=== PATIENT | male | born 1960 | race Caucasian/White ===

== ENCOUNTER 2025-01-24 10:03 | Outpatient (CLI) | payer BC, SELFPAY | END 2025-01-24 10:04 | disposition home or self-care (01) | PROVIDERS: PCP Family Medicine; Visit Provider Family Medicine | DX: R35.0 Frequency of micturition (principal); R30.0 Dysuria; Z13.6 Encounter for screening for cardiovascular disorders | CPT/HCPCS: 80053; 80061; 87086 ==

== ENCOUNTER 2025-02-01 10:31 | Outpatient (CLI) | payer BC, SELFPAY ==
--- NOTE | 2025-02-01 10:45 | CRLHL7_ITS ---
For Patients: As a result of the Century Cures Act, medical imaging exams and procedure reports are released immediately into your electronic medical record. You may view this report before your referring provider. If you have questions, please contact your health care provider. Examination: US abdominal aorta Indication: Encounter for screening for cardiovascular disorders. Abdominal aortic aneurysm screening. Technique: Gonzalez scale and color Doppler images of the aorta and common iliac arteries are obtained. Comparison: None Findings: Proximal aorta: 2.5 x 2.4 cm Mid aorta: 1.6 x 1.9 cm Distal aorta: 2.4 x 2.4 cm Right common iliac artery: 1.0 x 1.4 cm Left common iliac artery: 1.4 x 1.3 cm Exam limited by excessive bowel gas. Impression: No abdominal aortic aneurysm. Dictated by Gregory Joe MD @ 02/01/2025 11:58:15 AM (Electronically Signed)
== END 2025-02-01 10:32 | disposition home or self-care (01) ==
LOC: US 10:34
PROVIDERS: PCP Family Medicine; Visit Provider Family Medicine
DX: Z13.6 Encounter for screening for cardiovascular disorders (principal); Z87.891 Personal history of nicotine dependence
CPT/HCPCS: 76706

== ENCOUNTER 2025-02-08 09:54 | Inpatient (IN) | payer BC, SELFPAY ==
[2025-02-08] VITALS (21 sets, daily range): BP systolic 127–168; BP diastolic 67–95; PULSE 50–76; RESP 12–18; TEMP 36.5–37.7; O2SAT 96–100; BMI 25.7
--- OUTSIDE RECORDS SUMMARY | 2025-02-08 09:56 | XMS_ITS | Clinical Summary ---
Author Organization [facility] Address [address] [place] [id number] Care Team Providers Care [employer] Name Role Phone Jose Luis Hensley MD Primary Care Provider [phone] Allergies No known active allergies Medications nicotine 21 mg/24 hr (NICODERM; HABITROL) 21 mg/24 hr patchIndication s:Tobacco use disorder Apply 1 Patch on dry, clean, hairless skin once daily. 30 Patch 0 5 Active nicotine 14 mg/24 hr (NICODERM CQ) 14 mg/24 hr patchIndication s:Tobacco use disorder Apply 1 Patch on dry, clean, hairless skin once daily. 30 Patch 0 5 Active nicotine 7 mg/24 hr (NICODERM; HABITROL) 7 mg/24 hr patchIndication s:Tobacco use disorder Apply 1 Patch on dry, clean, hairless skin once daily. 30 Patch 0 5 Active hydrocortisone 2.5% creamIndication s:Skin rash Apply topically to affected area(s) 2 times daily. 28 g 1 5 Active terbinafine HCl (LAMISIL) 250 mg tabletIndicatio ns:Tinea pedis of right foot Take 1 tablet by mouth once daily. 30 tablet 0 5 Active Active Problems Problem Noted Date Diagnosed Date Tobacco use disorder 01/10/2010 Disorders of bursae and tend ons in shoulder region, unspecified 01/10/2010 Social History Tobacco Use Types Packs/Day Years Used Date Smoking Tobacco: Former Cigarettes Q uit: 07/11/2014 Tobacco Cessation:Counseling Given: Yes Alcohol Use Standard Drinks/Week Comments Not Asked 0 (1 standard drink = 0.6 oz pur e alcohol) Sex and Gender Information Value Date Recorded Sex Assigned at Not on file Legal Sex Male 5:26 AM [employer] Gender Identity Not on file Sexual Orientation Not on file Obstetrics History Last Filed Vital Signs Vital Sign Reading Time Taken Comments Blood Pressure 132/72 01/22/2015 1:48 PM CDT Pulse 107 01/22/2015 1:45 PM CDT Temperature 36.7 C (98.1 F) 01/22/2015 1:45 PM CDT Respiratory Rate - - Oxygen Saturation 98% 01/22/2015 1:45 PM CDT Inhaled Oxygen Concentration - - Weight 62.1 kg (137 lb) 08/05/2014 10:24 AM CDT Height 170.2 cm (5' 7.01) 05/02/2013 1:03 PM CS T Body Mass Index 21.45 05/02/2013 1:03 PM [employer] Plan of Treatment Health Maintenance Due Date Last Done Comments Tetanus booster 1969 Depression screening for age 12+ 1970 BMI (ht and wt on same day) for age 18+ 1976 Colonoscopy through age 75 08/20/2003 Pneumococcal series for age 50+ (1 of 1 - PCV) 2008 Zoster (shingles) series for age 50+ (1 of 2) 2008 Lipids for age 45-75 07/11/2019 07/10/2014 COVID-19 vaccine series ( - 2023- season) 2024 Influenza Vaccine (#1) 2024 RSV vaccine for adults or (1 - 1-dose 75+ series) 2033 Hepatitis C screening for ag e 18-79 Completed 07/10/2014 Hepatitis B series for 19+ Aged Out N o longer eligible based on patient's age to complete this topic Procedures Procedure Name Priority Date/Time Associated Diagnosis Comments ANTI HCV Routine 07/10/2014 4:31 PM CDT Need for hepatitis C screening test LIPID PANEL W REFLEX MEASURED LDL Routine 07/10/2014 4:31 PM CDT Lipid screening from Last 3 Months or Most Recently Relevant to Health Maintenance Results * (ABNORMAL) LIPID PANEL W REFLEX MEASURED LDL (07/10/2014 4:31 PM CDT) CHOLESTEROL,TOTAL 228(H) 100 - 199 mg/dL 07/10/2014 5:06 PM CDT [facility] TRIGLYCERIDES 63 <150 mg/dL 07/10/2014 5:06 PM CDT [facility] HDL CHOLESTEROL 94 >40 mg/dL 5:06 PM CDT [facility] NON-HDL CHOLESTEROL 134 <145 mg/dl 07/10/2014 5:06 PM CDT [facility] CHOL/HDL RATIO 2.43 <4.50 07/10/2014 5:06 PM CDT [facility] LDL CHOLESTEROL 121 <=130 mg/dL 07/10/2014 5:06 PM CDT [facility] PATIENT STATUS NON-FASTI NG 07/10/2014 5:06 PM CDT [facility] Blood specimen (specimen) BLOOD SPECIMEN / Unknown Venipuncture / Unknown 07/10/2014 4:31 PM CDT 07/10/2014 4:31 PM CDT Jose Luis Hensley [place] [address], [place] [phone] * ANTI HCV (07/10/2014 4:31 PM CDT) HEPATITIS C ANTIBODY Non-Reacti ve Non-Reacti ve 07/11/2014 1:28 PM CDT [facility] Blood specimen (specimen) BLOOD SPECIMEN / Unknown Venipuncture / Unknown 07/10/2014 4:31 PM CDT 07/10/2014 4:31 PM CDT Narrative [facility] - 07/11/2014 1:28 PM CDT Antibodies to HCV not detected; does not exclude the possibility of exposure to HCV. Jose Luis Hensley MD SEND OUTS Final Resu lt [facility] [address] [place] [address], from Last 3 Months or Most Recently Relevant to Health Maintenance Insurance [place] [id number] Care Teams [employer] Relationship Specialty Start Date End Date Jose Luis Hensley MD [address] [facility] [address] PCP - General 02/10/07
--- NOTE | 2025-02-08 10:44 | CRLHL7_ITS ---
For Patients: As a result of the Century Cures Act, medical imaging exams and procedure reports are released immediately into your electronic medical record. You may view this report before your referring provider. If you have questions, please contact your health care provider. INDICATION: LOWER ABD PAIN. CONSTIPATION TECHNIQUE: CT of the abdomen and pelvis was obtained with 74 mL of Isovue 370 intravenous contrast. Please note that all CT scans at this facility use dose modulation, iterative reconstruction, and/or weight-based dosing when appropriate to reduce radiation dose to as low as reasonably achievable. COMPARISON: None. FINDINGS: Lower thorax: Normal. Liver and biliary tree: 5.2 x 4.9 centimeter heterogeneous right hepatic lesion (2/25). Gallbladder: Normal. Spleen: Normal. Pancreas: Normal. Adrenal glands: Normal. Kidneys and ureters: No hydronephrosis or obstructing renal calculi. Gastrointestinal tract: Paucity of intra-abdominal fat slightly limits evaluation of the bowel. Enhancing irregular rectal mass is seen spanning a length of roughly 5.5 centimeter and measuring up to 1.7 centimeter in thickness (2/115). Moderate distention of the fluid-filled colon. No evidence of acute appendicitis. No evidence of bowel obstruction. Peritoneal cavity: No free fluid. Mild fat stranding surrounding the rectum. Bladder: Mildly thick walled. Pelvic organs: Mildly enlarged prostate. Vasculature: Moderate calcification. Lymph nodes: Normal. Abdominal wall: Normal. Musculoskeletal: Mild degenerative changes of the visualized spine and of the bilateral hips. IMPRESSION: 1. Enhancing irregular rectal mass is seen with moderate distention of the fluid-filled colon. Findings are compatible with malignancy with associated obstruction. Consider endoscopy for further evaluation. 2. 5.2 x 4.9 centimeter heterogeneous right hepatic lesion is concerning for a metastasis given the rectal lesion. Please note that all CT scans at this facility use dose modulation, iterative reconstruction, and/or weight-based dosing when appropriate to reduce radiation dose to as low as reasonably achievable. Dictated by Tyrone Whaley MD @ 02/08/2025 11:54:03 AM (Electronically Signed)
--- NOTE | 2025-02-08 10:59 | ED.GENADULT ---
HPI - General Adult General Date Seen: 02/08/25 Chief complaint: Nausea/Vomiting Stated complaint: Vomiting, abdominal pain Time Seen by Provider: 02/08/25 09:58 Source: patient Mode of arrival: ambulatory Limitations: no limitations History of Present Illness HPI narrative: Patient is a 64-year-old male presenting to emergency department for abdominal pain and vomiting. On 01/24/2025 he had his annual well visit. At that time is complaining about some mild abdominal pain and constipation. That tender also notes he had low hemoglobin of 9.4. He does states he notice some blood in his stool a week before his appointment. Due to that they did get scheduled for colonoscopy. He was doing a colonoscopy prep was post to have a colonoscopy yesterday but despite taking all the medications he was not having much for bowel movements. Will only passed a small amount of liquid stool at a time. He took magnesium citrate and started developing severe lower abdominal pain. Denies ever having pain like this before. States pain is tolerable at this time he gets much worse throughout the day. Has vomited multiple times since the pain started. Has not been able to eat or drink anything due to the pain. Has had chills. Denies fevers, shortness of breath. Does states he has intermittent chest pain but denies any chest pain currently. Also states he has pain with urination. On his last appointment on 01/24 a prostate exam was done which caused severe pain for him. Does state he has intermittent testicular discomfort but currently is not having any pain Related Data Home Medications ?Medication ?Instructions ?Recorded ?Confirmed No Known Home Medications 02/08/25 02/08/25 Allergies Allergy/AdvReac Type Severity Reaction Status Date / Time No Known Drug Allergies Allergy Verified 02/08/25 11:12 Review of Systems Status of ROS: Reports: 10 or more systems reviewed and unremarkable except as noted in History and below [facility] Social History What is your current living situation?: I presently have a place to live Problems where you live: declined to answer In the past 12 months, utilities in danger of being shut off: no In past 12 months, lack of transportation kept you from medical appts, meetings, work, or getting things needed for daily living: no In the past 12 mos, have been you worried that your food would run out before you had money to buy more?: never true In the past 12 mos, the food you bought just didn't last and you didn't have money to buy more?: never true How often does anyone, including family, friends and others, physically hurt you: never How often does anyone, including family, friends and others, insult or talk down to you: never How often does anyone, including family, friends and others, threaten you with harm: never How often does anyone, including family, friends and others, scream or curse at you: never Exam Narrative: Exam Narrative: Const: Well-nourished, Well-developed, in mild to moderate distress Eyes: PERRL, no conjunctival injection, and symmetrical lids HENT: Atraumatic external nose and ears. Moist mucous membranes. Neck: Symmetric, trachea midline, No thyromegaly. CVS: RRR, No murmurs or gallops. Peripheral pulses 2+ and equal in all extremities RESP: Unlabored respiratory effort. Clear to auscultation bilaterally. GI: Diffuse abdominal tenderness, Nondistended, No rebound or guarding. : Normal appearing scrotum and penis. No tenderness noted to testicles. Normal cremasteric reflexes. MSK:Extremities w/o deformity, Normal Active ROM Skin: Warm, Dry. No rashes or lesions. Neuro: Normal Muscle tone, No focal neurological deficits. Psych: Awake, Alert, & Oriented x3. Appropriate mood and affect. Const: Vital Signs, click to edit/add: Vital Signs - 24 hr 02/08/25 10:23 02/08/25 12:27 Temperature 98 F Pulse Rate [Pulse Oximeter] 76 70 Respiratory Rate 18 18 Blood Pressure [Ri ght Upper Arm] 152/85 H 146/72 H Pulse Oximetry 98 99 Oxygen Delivery Me thod Room Air Room Air Course Vital Signs Vital signs: Initial Vital Signs Temperature 98 F 02/08/25 10:23 Temperature Source Temporal Artery Scan 02/08/25 10:23 Pulse Rate 76 02/08/25 10:23 Respiratory Rate 18 02/08/25 10:23 Blood Pressure 152/85 H 02/08/25 10:23 Blood Pressure Mean 107 H 02/08/25 10:23 Blood Pressure Position Sitting 02/08/25 10:23 Pulse Oximetry 98 02/08/25 10:23 Oxygen Delivery Method Room Air 02/08/25 10:23 Vital Signs Temperature 98 F 02/08/25 10:23 Pulse Rate 76 02/08/25 10:23 Respiratory Rate 18 02/08/25 10:23 Blood Pressure 152/85 H 02/08/25 10:23 Pulse Oximetry 98 02/08/25 10:23 Oxygen Delivery Method Room Air 02/08/25 10:23 Temperature 98 F 02/08/25 10:23 Pulse Rate 70 02/08/25 12:27 Respiratory Rate 18 02/08/25 12:27 Blood Pressure 146/72 H 02/08/25 12:27 Pulse Oximetry 99 02/08/25 12:27 Oxygen Delivery Method Room Air 02/08/25 12:27 Medications Administered Medications: Discontinued Medications Generic Name Dose Route Start Last Admin Trade Name Freq PRN Reason Stop Dose Admin Lactated Ringer's 1,000 mls @ 1,000 mls/hr 02/08/25 10:44 02/08/25 12:36 Lactated Ringers 1000 Ml IV 02/08/25 11:43 Infused .Q1H ONE Infusion Ondansetron HCl 4 mg 02/08/25 10:44 02/08/25 11:24 Ondansetron 2 Mg/Ml Inj IVP 02/08/25 10:45 4 mg ONCE ONE Administration Medical Decision Making MDM Narrative Medical decision making narrative: Patient is a 64-year-old male presenting to the emergency department for abdominal pain. Differential at this time include small-bowel obstruction, appendicitis, diverticulitis, constipation, prostatitis. As pain is mostly in the lower abdomen pancreatitis and gallbladder/liver disease seem less likely but I will check for these also. He does have intermittent 0 scrotal discomfort but currently is pain-free and the exam was unremarkable. I have very low concern for testicular torsion or epididymitis. Will do a CT scan to better evaluate. Will also order CBC, CMP, magnesium. First intermittent chest pain will do an EKG and troponin. Zofran given for nausea and fluids for dehydration. He declines any pain medication at this time. Patient's lab work returned with white count of 17.57. Does not meet any other SIRS criteria. His hemoglobin is up from 9.4 to 10.2. His sodium was slightly lower down to 128. EKG reviewed by myself shows no acute concerning abnormalities. Troponin shows no acute concerning abnormalities. Vital signs have been stable throughout his time in the emergency department. CT scan of his abdomen and pelvis returned showing a rectal mass with mild distension of the fluid-filled colon. This is compatible with malignancy and associated obstruction. There is also a heterogeneous right hepatic lesion as concerning for metastasis. I spoke to the on-call general surgeon, Dr. Chakraborty, who recommends admission and she will do surgery on him tonight due to the elevated white blood cell count. Did not recommend any antibiotics at this time. She also recommends admission to the hospitalist service in states she was told that they might be able to get him on the schedule tomorrow morning for a colonoscopy for biopsy of the rectal mass. I spoke to the patient and he is agreeable to this plan. He will be NPO. Lactate, blood cultures and chest x-ray added on. Lab Data Labs: Lab Results 02/08/25 02/08/25 Range/Units 10:25 10:55 WBC 17.57 H (4.50-11.00) K/uL RBC 4.81 (4.30-5.90) m/uL Hgb 10.2 L (13.5-17.5) gm/dL Hct 33.5 L (37.0-53.0) % MCV 70 L (80-100) fL MCH 21 L (26-34) pg MCHC 30 L (32-36) gm/dL RDW Coeff of Destiney 23.0 H (11.5-15.5) % Plt Count 401 (140-440) K/uL Neut % (Auto) 89.1 H (42.0-72.0) % Lymph % (Auto) 3.2 L (20-44) % Davison % (Auto) 7.1 (0.0-11.0) % Eos % (Auto) 0.1 (0.0-7.0) % Baso % (Auto) 0.3 (0.0-3.0) % Neut # (Auto) 15.70 H (1.7-7.0) K/uL Lymph # (Auto) 0.60 L (0.90-2.90) K/uL Davison # (Auto) 1.20 H (0.00-0.90) K/UL Eos # (Auto) 0.00 (0.00-0.50) K/uL Baso # (Auto) 0.10 (0.00-0.30) K/uL Abs Immat Gran (auto) 0.00 (0.00-0.30) K/uL Imm/Tot Granulo (auto) 0.2 % Sodium 128 L (135-149) mmol/L Potassium 3.7 (3.6-5.1) mmol/L Chloride 89 L (96-114) mmol/L Carbon Dioxide 24 (20-32) mmol/L Anion Gap 15 (7-15) mEq/L BUN 19 (7-30) mg/dL Creatinine 0.8 (0.5-1.5) mg/dL Estimated Creat Clear 60.84 Estimated GFR 98 ml/min Glucose 92 (60-115) mg/dL Calcium 9.0 (8.4-10.6) mg/dL Magnesium 2.1 (1.5-2.6) mg/dL Total Bilirubin 0.8 (0.1-1.5) mg/dL AST 28 (12-35) U/L ALT 14 (4-50) U/L Alkaline Phosphatase 129 (40-150) U/L Total Protein 7.2 (6.0-8.3) g/dL Albumin 4.1 (3.3-5.0) g/dL POC Troponin I 0.00 L (0.01-0.04) ng/ml Imaging Data CT scan abdomen and pelvis: Attestation: I have reviewed the pertinent imaging results. Radiologist's impression: 1. Enhancing irregular rectal mass is seen with moderate distention of the fluid-filled colon. Findings are compatible with malignancy with associated obstruction. Consider endoscopy for further evaluation. 2. 5.2 x 4.9 centimeter heterogeneous right hepatic lesion is concerning for a metastasis given the rectal lesion. Please note that all CT scans at this facility use dose modulation, iterative reconstruction, and/or weight-based dosing when appropriate to reduce radiation dose to as low as reasonably achievable. Dictated by Tyrone Whaley MD @ 02/08/2025 11:54:03 AM ECG Data Attestation: I personally reviewed and interpreted this ECG as follows: Prior ECG tracings: not available for review Interpretation: Normal sinus rhythm with a rate 67 beats per minute, normal intervals, normal axis, no ST or T-wave abnormalities. Discharge Plan Discharge Clinical Impression: Colonic mass, Lesion of liver Bowel obstruction Qualifiers: Intestinal obstruction type: unspecified Intestinal obstruction extent: unspecified extent Qualified Code(s): K56.609 - Unspecified intestinal obstruction, unspecified as to partial versus complete obstruction Patient Disposition: Admitted As Inpatient Condition: Stable
[2025-02-08 11:02] LABS: Hematocrit* 33.5 % (37.0-53.0); Hemoglobin* 10.2 gm/dL (13.5-17.5); Immature Granulocytes Pct Auto 0.2 %; Mean Corpuscular HGB Conc 30 gm/dL (32-36); Mean Corpuscular Hemoglobin 21 pg (26-34); Mean Corpuscular Volume 70 fL (80-100); RDW Coefficient of Variation % 23.0 % (11.5-15.5); Red Blood Count* 4.81 m/uL (4.30-5.90); White Blood Count* 17.57 K/uL (4.50-11.00)
[2025-02-08 11:03] LABS: Immature Granulocytes Abs Auto 0.00 K/uL (0.00-0.30); Lymphocytes Absolute Auto 0.60 K/uL (0.90-2.90); Slide Review Reflex No
[2025-02-08 11:09] LABS: Troponin, Point-of-Care* 0.00 ng/ml (0.01-0.04)
[2025-02-08 11:22] LABS: Albumin* 4.1 g/dL (3.3-5.0); Chloride* 89 mmol/L (96-114); Sodium* 128 mmol/L (135-149)
[2025-02-08 11:23] LABS: Potassium* 3.7 mmol/L (3.6-5.1)
[2025-02-08] MEDS: ONDANSETRON 2 MG/ML inj 4 MG IVP (11:24)
[2025-02-08] MEDS: LACTATED RINGERS 1000 ML 1,000 ML IV (11:24)
[2025-02-08 11:25] LABS: Alanine Aminotransferase* 14 U/L (4-50); Alkaline Phosphatase* 129 U/L (40-150); Anion Gap 15 mEq/L (7-15); Aspartate Amino Transferase* 28 U/L (12-35); Bilirubin Total* 0.8 mg/dL (0.1-1.5); Blood Urea Nitrogen* 19 mg/dL (7-30); Carbon Dioxide* 24 mmol/L (20-32); Creatinine* 0.8 mg/dL (0.5-1.5); Est. Creatinine Clearance* 60.84; Estimated Glomerular Filt Rate 98 ml/min; Total Protein* 7.2 g/dL (6.0-8.3)
[2025-02-08 11:26] LABS: Calcium* 9.0 mg/dL (8.4-10.6); Glucose* 92 mg/dL (60-115)
--- NOTE | 2025-02-08 13:10 | CRLHL7_ITS ---
For Patients: As a result of the Century Cures Act, medical imaging exams and procedure reports are released immediately into your electronic medical record. You may view this report before your referring provider. If you have questions, please contact your health care provider. Indication: Preop Comparison: None available. Technique: Single AP view chest Findings: There is hyperinflation and chronic interstitial change. Granuloma within the there is a calcified inferior right upper lobe. There is no focal consolidation, effusion, or pneumothorax. The cardiomediastinal silhouette is within normal limits. The bony thorax is grossly intact. Impression: Hyperinflation and chronic interstitial change without dense consolidation. Dictated by Tadeo Falk MD @ 02/08/2025 1:28:13 PM (Electronically Signed)
--- NOTE | 2025-02-08 13:36 | P.IMHP_ITS ---
Assessment and Plan Assessment and plan (1) Rectal mass: Problem comment: - CT shows Enhancing irregular rectal mass is seen with moderate distention of the fluid-filled colon. Findings are compatible with malignancy with associated obstruction - General Surgery consult. Dr. Chakraborty planning for surgical intervention tonight - NPO, IVF, pain and nausea management prn - SCDs for VTE PPE Status: Acute (2) Bowel obstruction: Problem comment: - as noted on CT Status: Acute (3) Lesion of liver: Problem comment: - CT shows 5.2 x 4.9 centimeter heterogeneous right hepatic lesion is concerning for a metastasis given the rectal lesion - LFTs unremarkable Status: Acute (4) Hyponatremia: Problem comment: -sodium 128, recheck in a.m. -NPO for surgical intervention tonight -continue IVF perioperatively Status: Acute (5) Leukocytosis: Problem comment: - WBC 17.57, neutrophils 89. Afebrile - BC x2, lactate ordered. UA ordered Status: Acute (6) Anemia: Problem comment: - hemoglobin 10.2, previously 9.4 - possible colorectal source given CT findings. Will need to confirm if having colonoscopy tomorrow. Bowel prep to be determined following 1st surgery this evening Status: Acute (7) Alcohol use disorder: Problem comment: -daily use 2-3 beers, increased on the weekend, last intake Monday 02/05 -CIWA protocol Status: Acute Plan To OR tonight with General surgery, colonoscopy tomorrow, to be determined following for surgery Total Time Spent Total Time Spent: Today I spent 75 minutes seeing the patient, reviewing Expanse and EPIC notes/diagnostics, discussing the care plan with our care time that includes social work, PT/OT, pharmacy, RT, fdc and documenting my impressions and plan in the medical record. Hospitalist- H&P: HPI History of Present Illness Date Seen: 02/08/25 Chief complaint: Vomiting, abdominal pain Narrative: Ab Tom is a 64 year old male without documented significant past medical history, not on any prescription medications is admitted to the medical floor from the ED for further management new finding of rectal mass concerning for malignancy associated with obstruction. Patient is seen with and daughter at bedside. Reports abdominal pain and change in bowels which he has been present maybe 3-4 months but worse in the past couple of weeks. Tells me his stools have been smaller in volume, sometimes loose. Has had urgency to have a bowel movement but only passing small amounts. Reports seen blood in his feces as well as in the toilet water a couple of weeks ago. He had recently been seen at his annual wellness visit on 01/24/2025 (he has not actually had a wellness exam in years) where he had been complaining about pain and constipation at that time. He was scheduled for a colonoscopy which was scheduled for yesterday but was not completed due to failed bowel prep. He has not been passing stools as normal. Even despite bowel prep. Has had some nausea with vomiting. Last episode of vomiting was yesterday. Has had poor oral intake due to this. Denies any fevers. Has had some chills. Denies headache or dizziness. No current chest pain or shortness of breath. Reports intermittent testicular pain and dysuria. Previous UA d uring his wellness visit was rather unremarkable. Patient is admitted for surgical intervention with General surgery, jaleel Arroyo. There is talk about a colonoscopy as well with Dr. Mina tomorrow. He will be NPO. Chest x-ray and EKG obtained in ED will be reviewed. Labs show a leukocytosis with left shift without recent fever. Lactate and blood cultures have been added. UA has been added. Mild hyponatremia noted otherwise electrolytes rather unremarkable. Quit smoking 15 years ago. Drinks alcohol typically on a daily basis 2-3 beers, more on the weekends. Denies history of seizures or withdrawals. Last drink was Monday 02/05. No regular PCP but last saw Dr. Dykes. No history of previous surgeries. No previous anesthesia. No known clotting/bleeding disorders. Review of Systems Narrative: REVIEW OF SYSTEMS: Complete review of systems performed and negative unless otherwise stated in HPI or below. Medical Decision Making Medical Decision Making Code Status: Full code Has patient completed a Health Care Directive: Yes [facility] Medical History (Updated 02/08/25 @ 15:04 by Clara Weston PA-C) Alcohol use disorder ?F10.90 - Alcohol use, unspecified, uncomplicated (ICD-10) History of tobacco use ?Z87.891 - Personal history of nicotine dependence (ICD-10) Rectal mass ?K62.89 - Other specified diseases of anus and rectum (ICD-10) Lesion of liver ?K76.9 - Liver disease, unspecified (ICD-10) Anemia ?D64.9 - Anemia, unspecified (ICD-10) Social History (Updated 02/08/25 @ 14:19 by Nora Chakraborty MD) Narrative: He is a former smoker, [id number] years ago. He drinks at least 3 beers daily. He is retired. He previously worked in a [employer], loading boxes. What is your current living situation?: I presently have a place to live Problems where you live: declined to answer In the past 12 months, utilities in danger of being shut off: no In past 12 months, lack of transportation kept you from medical appts, meetings, work, or getting things needed for daily living: no In the past 12 mos, have been you worried that your food would run out before you had money to buy more?: never true In the past 12 mos, the food you bought just didn't last and you didn't have money to buy more?: never true How often does anyone, including family, friends and others, physically hurt you : never How often does anyone, including family, friends and others, insult or talk down to you: never How often does anyone, including family, friends and others, threaten you with harm: never How often does anyone, including family, friends and others, scream or curse at you: never Meds Home Medications and Allergies Home Medications ?Medication ?Instructions ?Recorded ?Confirmed ?Type No Known Home Medications 02/08/2501/25 History Allergies Allergy/AdvReac Type Severity Reaction Status Date / Time No Known Drug Allergies Allergy Verified 02/08/25 11:12 Exam Narrative: Exam Narrative: PHYSICAL EXAM General: Pleasant, conversant, NAD HEENT: Normocephalic, atraumatic, sclera white, EOMI, oral mucosa moist Cardiovascular: RRR, S1S2. No pitting edema Pulmonary: CTA bilaterally without rhonchi, rales, expiratory wheezes. No dyspnea Abdominal: Diffusely tender, guarding, nondistended Neurological: Alert, answering questions appropriately, cranial nerves intact, no focal findings Extremities: No gross joint deformity or swelling. AROMI. Neurovascularly intact Skin: Warm, dry. Const: Vital Signs, click to edit/add: Vital Signs - 24 hr 02/08/25 10:23 02/08/25 12:27 Temperature 98 F Pulse Rate [Pulse Oximeter] 76 70 Respiratory Rate 18 18 Blood Pressure [Ri ght Upper Arm] 152/85 H 146/72 H Pulse Oximetry 98 99 Oxygen Delivery Me thod Room Air Room Air Hospitalist - H&P: Result Labs Labs: Short CBC 02/08/25 Range/Units 10:55 WBC 17.57 H (4.50-11.00) K/uL Hgb 10.2 L (13.5-17.5) gm/dL Hct 33.5 L (37.0-53.0) % Plt Count 401 (140-440) K/uL BMP 02/08/25 10:55 Sodium 128 L Potassium 3.7 Chloride 89 L Carbon Dioxide 24 BUN 19 Creatinine 0.8 Glucose 92 Calcium 9.0 Liver Function 02/08/25 Range/Units 10:55 Total Bilirubin 0.8 (0.1-1.5) mg/dL AST 28 (12-35) U/L ALT 14 (4-50) U/L Alkaline Phosphatase 129 (40-150) U/L Albumin 4.1 (3.3-5.0) g/dL ECG Attestation: I personally reviewed and interpreted this ECG as follows: Interpretation: NSR mild abnormalities, ventricular rate 67, QTC 443 Imaging Chest x-ray: Attestation: I have reviewed the pertinent imaging results. Radiologist's impression: There is hyperinflation and chronic interstitial change. Granuloma within the there is a calcified inferior right upper lobe. There is no focal consolidation, effusion, or pneumothorax. The cardiomediastinal silhouette is within normal limits. The bony thorax is grossly intact. Impression: Hyperinflation and chronic interstitial change without dense consolidation. CT scan - abdomen: Attestation: I have reviewed the pertinent imaging results. Radiologist's impression: Lower thorax: Normal. Liver and biliary tree: 5.2 x 4.9 centimeter heterogeneous right hepatic lesion (06/21). Gallbladder: Normal. Spleen: Normal. Pancreas: Normal. Adrenal glands: Normal. Kidneys and ureters: No hydronephrosis or obstructing renal calculi. Gastrointestinal tract: Paucity of intra-abdominal fat slightly limits evaluation of the bowel. Enhancing irregular rectal mass is seen spanning a length of roughly 5.5 centimeter and measuring up to 1.7 centimeter in thickness (2/115). Moderate distention of the fluid-filled colon. No evidence of acute appendicitis. No evidence of bowel obstruction. Peritoneal cavity: No free fluid. Mild fat stranding surrounding the rectum. Bladder: Mildly thick walled. Pelvic organs: Mildly enlarged prostate. Vasculature: Moderate calcification. Lymph nodes: Normal. Abdominal wall: Normal. Musculoskeletal: Mild degenerative changes of the visualized spine and of the bilateral hips. IMPRESSION: 1. Enhancing irregular rectal mass is seen with moderate distention of the fluid-filled colon. Findings are compatible with malignancy with associated obstruction. Consider endoscopy for further evaluation. 2. 5.2 x 4.9 centimeter heterogeneous right hepatic lesion is concerning for a metastasis given the rectal lesion.
[2025-02-08 13:37] LABS: Lactate Sepsis w/Reflex* 1.8 mmol/L (0.5-1.9)
--- NOTE | 2025-02-08 14:14 | PM.GSCN ---
History of Present Illness Consult details Date Seen: 02/08/25 Consult date: 02/08/25 Narrative: The patient is a 64-year-old male who presented to the emergency department today with abdominal pain. he states that he was brought in because his daughter and his said that he come in to be seen and that he avoids going to the doctor. His states that for the last 2 months he has had decrease in his bowel movements. The patient states that it is hard for him to have a bowel movement and will usually he will just have a squirt of liquid come out. He did establish care with a primary care physician who recommended a colonoscopy because He was found to be anemic. He did the colon prep on Thursday, however nothing came out. He was supposed to have a colonoscopy yesterday, however he has began vomiting all day. He has not had any food since Thursday. This morning he finally had a small watery bowel movement but he continues to have abdominal pain and he was brought in to be seen. He does not take any medications in states that he does not have any medical problems that he knows of. He has never done screening for colon cancer in the past. He has not had a colonoscopy. Denies family history colon cancer. Denies blood in his stool. He does have a history of tobacco use, quitting 15 years ago. He drinks approximately 3+ beers daily. He recently had an upper respiratory illness with the cough. This was 2 weeks ago. [facility] Medical History (Updated 02/08/25 @ 14:18 by Nora Chakraborty MD) History of tobacco use ?Z87.891 - Personal history of nicotine dependence (ICD-10) Rectal mass ?K62.89 - Other specified diseases of anus and rectum (ICD-10) Lesion of liver ?K76.9 - Liver disease, unspecified (ICD-10) Anemia ?D64.9 - Anemia, unspecified (ICD-10) Social History (Updated 02/08/25 @ 14:19 by Nora Chakraborty MD) Narrative: He is a former smoker, [id number] years ago. He drinks at least 3 beers daily. He is retired. 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 What is your current living situation?: I presently have a place to live Problems where you live: declined to answer In the past 12 months, utilities in danger of being shut off: no In past 12 months, lack of transportation kept you from medical appts, meetings, work, or getting things needed for daily living: no In the past 12 mos, have been you worried that your food would run out before you had money to buy more?: never true In the past 12 mos, the food you bought just didn't last and you didn't have money to buy more?: never true How often does anyone, including family, friends and others, physically hurt you: never How often does anyone, including family, friends and others, insult or talk down to you: never How often does anyone, including family, friends and others, threaten you with harm: never How often does anyone, including family, friends and others, scream or curse at you: never Meds Home Medications and Allergies Home Medications ?Medication ?Instructions ?Recorded ?Confirmed ?Type No Known Home Medications 02/08/25 02/08/25 History Allergies Allergy/AdvReac Type Severity Reaction Status Date / Time No Known Drug Allergies Allergy Verified 02/08/25 11:12 Exam Narrative: Exam Narrative: General appearance: Alert, cooperative, and in no distress Eyes: PERRLA, eye lids clear, and sclera white HENT Head: Normocephalic Ears: External ears normal Pulmonary: Breathing nonlabored on room air - He has the hiccups Cardiovascular Heart: Regular rate Extremities: warm and well perfused Gastrointestinal Abdominal: Mild distension. No scars noted. He is mildly tender in the lower abdomen. Musculoskeletal: Extremities: Upper: Both upper extremities have normal joint range of motion and intact strength. Lower: Both lower extremities have normal joint range of motion and intact strength. Skin: Normal skin color, texture, and turgor. Neurologic: No focal deficits Psychiatric: Alert, oriented, cooperative, normal affect. Const: Vital Signs, click to edit/add: Vital Signs - 24 hr 02/08/25 10:23 02/08/25 12:27 Temperature 98 F Pulse Rate [Pulse Oximeter] 76 70 Respiratory Rate 18 18 Blood Pressure [Ri ght Upper Arm] 152/85 H 146/72 H Pulse Oximetry 98 99 Oxygen Delivery Me thod Room Air Room Air Results Labs Labs: Abnormal lab results 02/08/25 02/08/25 Range/Units 10: 10:55 WBC 17.57 H (4.50-11.00) K/uL Hgb 10.2 L (13.5-17.5) gm/dL Hct 33.5 L (37.0-53.0) % MCV 70 L (80-100) fL MCH 21 L (26-34) pg MCHC 30 L (32-36) gm/dL RDW Coeff of [place]ine[place] 23.0 H (11.5-15.5) % Neut % (Auto) 89.1 H (42.0-72.0) % Lymph % (Auto) 3.2 L (20-44) % Neut # (Auto) 15.70 H (1.7-7.0) K/uL Lymph # (Auto) 0.60 L (0.90-2.90) K/uL [place] # (Auto) 1.20 H (0.00-0.90) K/UL Sodium 128 L (135-149) mmol/L Chloride 89 L (96-114) mmol/L POC Troponin I 0.00 L (0.01-0.04) ng/ml Diabetes panel 02/08/25 Range/Units 10:55 Sodium 128 L (135-149) mmol/L Potassium 3.7 (3.6-5.1) mmol/L Chloride 89 L (96-114) mmol/L Carbon Dioxide 24 (20-32) mmol/L BUN 19 (7-30) mg/dL Creatinine 0.8 (0.5-1.5) mg/dL Glucose 92 (60-115) mg/dL Calcium 9.0 (8.4-10.6) mg/dL AST 28 (12-35) U/L ALT 14 (4-50) U/L Alkaline Phosphatase 129 (40-150) U/L Total Protein 7.2 (6.0-8.3) g/dL Albumin 4.1 (3.3-5.0) g/dL Calcium panel 02/08/25 Range/Units 10:55 Calcium 9.0 (8.4-10.6) mg/dL Albumin 4.1 (3.3-5.0) g/dL Pituitary panel 02/08/25 Range/Units 10:55 Sodium 128 L (135-149) mmol/L Potassium 3.7 (3.6-5.1) mmol/L Chloride 89 L (96-114) mmol/L Carbon Dioxide 24 (20-32) mmol/L BUN 19 (7-30) mg/dL Creatinine 0.8 (0.5-1.5) mg/dL Glucose 92 (60-115) mg/dL Calcium 9.0 (8.4-10.6) mg/dL Adrenal panel 02/08/25 Range/Units 10:55 Sodium 128 L (135-149) mmol/L Potassium 3.7 (3.6-5.1) mmol/L Chloride 89 L (96-114) mmol/L Carbon Dioxide 24 (20-32) mmol/L BUN 19 (7-30) mg/dL Creatinine 0.8 (0.5-1.5) mg/dL Glucose 92 (60-115) mg/dL Calcium 9.0 (8.4-10.6) mg/dL Total Bilirubin 0.8 (0.1-1.5) mg/dL AST 28 (12-35) U/L ALT 14 (4-50) U/L Alkaline Phosphatase 129 (40-150) U/L Total Protein 7.2 (6.0-8.3) g/dL Albumin 4.1 (3.3-5.0) g/dL All other labs normal. Imaging Abdomen CT scan report/results: report reviewed and image reviewed Additional studies: CT abdomen/pelvis: IMPRESSION: 1. Enhancing irregular rectal mass is seen with moderate distention of the fluid-filled colon. Findings are compatible with malignancy with associated obstruction. Consider endoscopy for further evaluation. 2. 5.2 x 4.9 centimeter heterogeneous right hepatic lesion is concerning for a metastasis given the rectal lesion. Dictated by Tyrone Whaley MD @ 02/08/2025 11:54:03 AM Chest x-ray: Indication: Preop Comparison: None available. Technique: Single AP view chest Findings: There is hyperinflation and chronic interstitial change. Granuloma within the there is a calcified inferior right upper lobe. There is no focal consolidation, effusion, or pneumothorax. The cardiomediastinal silhouette is within normal limits. The bony thorax is grossly intact. Impression: Hyperinflation and chronic interstitial change without dense consolidation. Dictated by Tadeo Falk MD @ 02/08/2025 1:28:13 PM Progress Note:A&P Assessment and plan (1) Anemia: Status: Acute (2) Leukocytosis: Status: Acute (3) Hyponatremia: Status: Acute (4) Rectal mass: Status: Acute (5) Bowel obstruction: Status: Acute (6) Lesion of liver: Status: Acute Plan The patient is a 64-year-old male with likely obstructing rectal cancer, possibly metastatic to the liver. - I spoke to the patient and his . I explained that the 1st step is to divert his colon obstruction. This would be done with a colostomy. We discussed procedure as well as risks and benefits. He understands that if we were unable to decompress his colon then he could progress to perforation which could cause him to become very ill and could be life-threatening immediately. Given his markedly elevated white blood cell count, I think that we should proceed to surgery this evening versus waiting until tomorrow. He does not appear to have significant small bowel or gastric distension, therefore do not think NG tube is necessary preoperatively. I did also discuss with Colorectal surgery the possibility of stenting, however this is not always successful and I think that the given his elevated white blood cell count and symptoms that diversion is the best 1st step I explained that he will also need a biopsy of the mass. I will attempt to do this via proctoscopy today in the OR, however I am unable to do that then we will have to have him undergo sigmoidoscopy tomorrow or Thursday to have a definitive diagnosis. We discussed that the reversibility of the ostomy will depend on his cancer stage and treatment course, however he understands there is a possibility this could be reversed. -He will also need a staging workup, some of which can be done as an outpatient - -CEA -Chest CT -Complete colonoscopy -Pelvis MRI -liver biopsy He is agreeable to proceed and we will plan on the OR urgently this evening for diversion and proctoscopy.
[2025-02-08 14:21] LABS: Procalcitonin* 0.15 ng/mL (<0.50)
[2025-02-08] MEDS: LACTATED RINGERS 1000 ML 1,000 ML 75 ML IV (16:20)
[2025-02-08] MEDS: PIPERACILLIN/TAZOBACTAM 3.375 GM INJ IVPB (16:33)
--- NOTE | 2025-02-08 16:52 | W.PM.NB ---
Nerve Block Nerve Block Time Seen by Provider: 16:15 Date Seen: 02/08/25 Type of block requested by surgeon for post-operative analgesia: TAP Side: bilateral Time out performed: Yes Verification of patient name: Yes Verification of date of : Yes Site marking: site marked Name of person performing procedure: Ghanshyam Mosquera Continuous monitoring Was continuous monitoring of O2 sat, B/P, traffic monitor specialist, recorded every 15 minutes?: Yes Procedure Checklist: sterile prep, needles and gloves Ultrasound guided. Images saved: Yes Medications given in 5ml increments after negative aspiration: Marcaine %: 0.25 mL: 30 Needle gauge: 20 and Exparel mL: 10 Needle gauge: 20 Patient tolerated procedure well: Yes Additional comments: Injected in 5 mL increments after negative aspiration Block Charges Block Charge (with Pro Fee): TAP Bilateral Use of Ultrasound Machine for Block: Yes- US Guidance/pain block
--- NOTE | 2025-02-08 18:14 | SUR.PHASEI ---
Hagerman attached to bowel inside colostomy bag, placed by Dr. Chakraborty intraoperatively
--- NOTE | 2025-02-08 18:25 | P.ANES_ITS ---
Anesthesia Charges Start Date/Time Anesthesia Start Date: 02/08/25 Anesthesia Start Time: 16:06 Stop Date/Time Anesthesia Stop Date: 02/08/25 Anesthesia Stop Time: 18:07 Coding CPT Codes CPT Codes: ANESTH SURG LOWER ABDOMEN - 90609 ([id number]) P2 - PATIENT W/MILD SYST DISEASE, QZ - PERCUSSION INSTRUMENT REPAIRER SVC W/O FOOD SERVICE COUNTER CLERK BY
--- NOTE | 2025-02-08 18:25 | W.ANESCHARGE ---
Anesthesia Charges Start Date/Time Anesthesia Start Date: 02/08/25 Anesthesia Start Time: 16:06 Stop Date/Time Anesthesia Stop Date: 02/08/25 Anesthesia Stop Time: 18:07 Coding CPT Codes CPT Codes: ANESTH SURG LOWER ABDOMEN - 62575 ([id number]) P2 - PATIENT W/MILD SYST DISEASE, QZ - BATCHER OPERATOR SVC W/O ELECTRONIC INTEGRATED SYSTEMS MECHANIC BY
--- NOTE | 2025-02-08 18:53 | P.GSOP_ITS ---
Operative Note Date of procedure: 02/08/25 Pre-op diagnosis: Obstructing rectal mass Post-op diagnosis: same Type of Procedure: 1. Laparoscopic loop sigmoid colostomy 2. Rigid proctoscopy, biopsy rectal mass Indications: The patient is a 64 year old male who presented to the emergency department with abdominal pain after colonoscopy prep. He was found to have an obstructing rectal mass and a liver lesion. I recommended diverting colostomy with possible biopsy of the mass and after discussion of risks and benefits, he agreed to proceed. Procedure Description: After discussing the risks and benefits of the procedure, the patient signed informed consent.? The operative site was marked and the patient was brought to the operating room and placed on the operating table in supine position.? Care was taken to pad the patient's pressure points.?? The patient was then intubated by anesthesia.??A TAP block was then performed. Please see anesthesia's note for details. The operative site was then prepped and draped in the usual sterile fashion.? A time-out was then performed. Entrance to the abdomen was obtained via open Romero technique by making an incision below the Umbilicus. Dissection was carried down into the subcutaneous tissue until the fascia was encountered. This was incised and the peritoneal cavity was entered. A 12 port was placed and the abdomen was insufflated and surveyed. There were no liver or peritoneal lesions noted. The colon was distended, however there were no signs of ischemia. I placed two 5 mm ports, one in the right lower quadrant and the other in the left mid abdomen under direct vision. The patient was placed in Trendelenburg position with the left side up. The sigmoid colon was grasped. Ligasure was used to divide the lateral pelvic adhesions and this was taken up along the white line of T[place]t to free the distal descending colon. The sigmoid colon was then able to be brought up to the abdominal wall at the site of the planned ostomy. I then created a mesenteric window with Ligasure. Through this I passed a odin Drain. I then created the stoma trephine using the left abdominal port site. A disc of skin was removed with cautery and discarded. Dissection was taken to the rectus fascia. This was incised in a cruciate fashion. The rectus fibers were spread using a retractor and the posterior sheath was similarly incised in a cruciate fashion. This was large enough to permit 2 fingers. I then grasped the odin drain and pulled the colon through the opening. This came up without tension and was well- perfused. The umbilcal port site fascia was closed with 0-vicryl and the skin of the port sites closed with 4-0 Monocryl. I then incised the sigmoid colon with cautery in a transverse fashion. This was matured in a [place] fashion at the proximal limb and flat at the distal limb using 3-0 vicryl. Once this was done, the stoma was explored and found to be patent through fascia. The odin drain was left in place to be removed in the early post-operative period. I then placed a stoma appliance over the ostomy. The patient was then placed in lithotomy position. A digital rectal exam was performed. No mass was palpated. A rigid proctoscope was advanced in the anal canal. There was bloody liquid noted. At 10 cm from the anal verge, a fungating, circumferential mass was encountered. Using a colonoscopic biopsy forceps, I obtained multiple biopsies of various locations on the tumor. These were sent to pathology. Instrument, sponge and needle counts were correct at the end of the case. ? The patient was then woken and transported to the recovery area in stable condition. ? The patient tolerated the procedure well. Findings: Rectal mass at 10 cm Anesthesia: GETA Surgeon: Nora Chakraborty MD Estimated blood loss (mL): 5 Specimen: Other Additional Specimen Information: biopsies, rectal mass at 10 cm Condition: stable Disposition: PACU
--- NOTE | 2025-02-08 19:23 | PC.NURSE ---
End of Shift: Patient pleasant and cooperative, A&o. VSS, afebrile. spO2 maintianed above 90% on RA. Stoma beefy red. PRN medication given for 8/10 pain. SBA
[2025-02-08] MEDS: LACTATED RINGERS 1000 ML 1,000 ML 125 ML IV ×2 (19:39→22:01)
[2025-02-08] MEDS: HYDROCODONE-ACETAMIN 5-325 MG 1 TAB PO (20:14)
[2025-02-08] MEDS: SODIUM CHLORIDE 0.9 % (FLUSH) 10 ML SYRINGE 5 ML IVF (21:21)
[2025-02-09] VITALS (11 sets, daily range): BP systolic 121–148; BP diastolic 63–77; PULSE 52–68; RESP 16–18; TEMP 36.2–36.9; O2SAT 96–99; BMI 19.3
[2025-02-09] MEDS: HYDROCODONE-ACETAMIN 5-325 MG 1 TAB PO ×5 (03:51→20:38)
[2025-02-09 06:37] LABS: Hematocrit* 29.1 % (37.0-53.0); Hemoglobin* 8.7 gm/dL (13.5-17.5); Immature Granulocytes Pct Auto 0.2 %; Mean Corpuscular HGB Conc 30 gm/dL (32-36); Mean Corpuscular Hemoglobin 21 pg (26-34); Mean Corpuscular Volume 71 fL (80-100); RDW Coefficient of Variation % 22.9 % (11.5-15.5); Red Blood Count* 4.10 m/uL (4.30-5.90); White Blood Count* 16.01 K/uL (4.50-11.00)
[2025-02-09 06:42] LABS: Immature Granulocytes Abs Auto 0.00 K/uL (0.00-0.30); Lymphocytes Absolute Auto 0.80 K/uL (0.90-2.90)
[2025-02-09 06:44] LABS: Slide Review Reflex No
[2025-02-09 06:45] LABS: Albumin* 3.0 g/dL (3.3-5.0); Chloride* 92 mmol/L (96-114); Potassium* 5.2 mmol/L (3.6-5.1)
[2025-02-09 06:48] LABS: Alanine Aminotransferase* 9 U/L (4-50); Alkaline Phosphatase* 93 U/L (40-150); Anion Gap 6 mEq/L (7-15); Aspartate Amino Transferase* 22 U/L (12-35); Bilirubin Direct* 0.2 mg/dL (0.0-0.5); Bilirubin Total* 0.4 mg/dL (0.1-1.5); Blood Urea Nitrogen* 16 mg/dL (7-30); Carbon Dioxide* 26 mmol/L (20-32); Creatinine* 0.9 mg/dL (0.5-1.5); Est. Creatinine Clearance* 57.37; Estimated Glomerular Filt Rate 94 ml/min; Total Protein* 5.5 g/dL (6.0-8.3)
[2025-02-09 06:49] LABS: Calcium* 8.2 mg/dL (8.4-10.6); Glucose* 85 mg/dL (60-115)
--- NOTE | 2025-02-09 06:54 | PC.NURSE ---
[id number] Pt slept on and off during night, stool output in ostomy bag, 500ml emptied during night, did not void until 0645, 50 cc, bladder scan completed prior to void 434 was max, pt declining to be straight cathed at this time. pain managed with shaye prn pain medication, tolerating po intake, no N/V, does have occasion hiccups. CIWA score highest 2, is anxious in room, pt states this is due to current situation with found mass and new ostomy. supportive family at bedside
[2025-02-09 06:56] LABS: Sodium* 124 mmol/L (135-149)
--- NOTE | 2025-02-09 07:32 | P.GSPN_ITS ---
Subjective Subjective Date Seen: 02/09/25 Interval history: Ab did well overnight. He has some low back and hip pain. He has had some stoma output. Generally overwhelmed with his new diagnosis and the next steps. Has not had any blood per rectum. Exam Narrative: Exam Narrative: General: No acute distress CV: Regular rate Respiratory: Breathing nonlabored on room air Abdomen: Incision is clean and dry. Copious stool in his stoma bag. Stoma is pink. [place] drain in place. Const: Vital Signs, click to edit/add: Vital Signs - 24 hr 02/08/25 10:23 02/08/25 12:27 02/08/25 13:52 Temperature 98 F Pulse Rate 64 Pulse Rate [Pulse Oximeter] 76 70 Respiratory Rate 18 18 Blood Pressure Blood Pressure [Le ft Arm] Blood Pressure [Ri ght Arm] Blood Pressure [Ri ght Upper Arm] 152/85 H 146/72 H Pulse Oximetry 98 99 Oxygen Delivery Az thod Room Air Room Air 02/08/25 13:52 02/08/25 13:58 02/08/25 13:58 Temperature 97.7 F 97.7 F Pulse Rate Pulse Rate [Pulse Oximeter] 64 64 Respiratory Rate 16 16 16 Blood Pressure Blood Pressure [Le ft Arm] Blood Pressure [Ri ght Arm] 154/80 H 154/80 H Blood Pressure [Ri ght Upper Arm] Pulse Oximetry 100 100 100 Oxygen Delivery Az thod Room Air Room Air Room Air 02/08/25 15:00 02/08/25 18:02 02/08/25 18:07 Temperature 99.8 F H Pulse Rate 55 L 54 L Pulse Rate [Pulse Oximeter] 64 Respiratory Rate 16 12 18 Blood Pressure 149/80 H 137/79 Blood Pressure [Le ft Arm] Blood Pressure [Ri ght Arm] Blood Pressure [Ri ght Upper Arm] Pulse Oximetry 100 100 Oxygen Delivery Az thod Room Air Room Air 02/08/25 18:15 02/08/25 18:20 02/08/25 18:39 Temperature Pulse Rate 54 L 50 L Pulse Rate [Pulse Oximeter] 52 L Respiratory Rate 14 18 Blood Pressure 152/85 H Blood Pressure [Le ft Arm] Blood Pressure [Ri ght Arm] 155/77 H Blood Pressure [Ri ght Upper Arm] Pulse Oximetry 98 100 98 Oxygen Delivery Me thod Room Air Room Air Room Air 02/08/25 18:45 02/08/25 19:04 02/08/25 19:19 Temperature 97.7 F 98.4 F Pulse Rate Pulse Rate [Pulse Oximeter] 51 L 53 L 53 L Respiratory Rate 16 16 16 Blood Pressure Blood Pressure [Le ft Arm] Blood Pressure [Ri ght Arm] 162/84 H 156/80 H 160/74 H Blood Pressure [Ri ght Upper Arm] Pulse Oximetry 98 99 99 Oxygen Delivery Me thod Room Air Room Air Room Air 02/08/25 19:33 02/08/25 19:34 02/08/25 20:04 Temperature 98.3 F 98.3 F 98.5 F Pulse Rate Pulse Rate [Pulse Oximeter] 56 L 56 L 59 L Respiratory Rate 16 16 16 Blood Pressure Blood Pressure [Le ft Arm] Blood Pressure [Ri ght Arm] 168/91 H 168/91 H 127/95 H Blood Pressure [Ri ght Upper Arm] Pulse Oximetry 98 98 96 Oxygen Delivery Me thod Room Air Room Air Room Air 02/08/25 20:34 02/08/25 21:34 02/08/25 22:34 Temperature 98.9 F 99.5 F 98.6 F Pulse Rate Pulse Rate [Pulse Oximeter] 61 63 69 Respiratory Rate 16 16 16 Blood Pressure Blood Pressure [Le ft Arm] Blood Pressure [Ri ght Arm] 137/67 152/69 H 149/73 H Blood Pressure [Ri ght Upper Arm] Pulse Oximetry 96 96 96 Oxygen Delivery Me thod Room Air Room Air Room Air 02/08/25 23:00 02/08/25 23:00 02/08/25 23:33 Temperature 98.6 F Pulse Rate 57 L Pulse Rate [Pulse Oximeter] 69 Respiratory Rate 16 16 Blood Pressure Blood Pressure [Le ft Arm] 149/73 H Blood Pressure [Ri ght Arm] Blood Pressure [Ri ght Upper Arm] Pulse Oximetry 96 96 Oxygen Delivery Me thod Room Air Room Air 02/09/25 03:00 02/09/25 03:00 Temperature 97.2 F L 97.2 F L Pulse Rate Pulse Rate [Pulse Oximeter] 52 L 52 L Respiratory Rate 16 16 Blood Pressure Blood Pressure [Le ft Arm] 121/71 121/71 Blood Pressure [Ri ght Arm] Blood Pressure [Ri ght Upper Arm] Pulse Oximetry 97 97 Oxygen Delivery Me thod Room Air Room Air Labs/Imaging Labs Labs: White blood cell count is 16 from 17 Hemoglobin 8.7 from 10.2, however prior hemoglobin on 01/24 was 9.4 Sodium 124 from 05/24 Potassium 5.2 CEA pending Progress Note:A&P Assessment and plan (1) Alcohol use disorder: Status: Acute (2) Anemia: Status: Acute (3) Hyponatremia: Status: Acute (4) Rectal mass: Status: Acute (5) Lesion of liver: Status: Acute (6) Colostomy in place: Status: Acute (7) S/P colostomy: Status: Acute Plan The patient is a 64-year-old male with an obstructing rectal mass, presumably adenocarcinoma, 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 He is postop day 1 from diverting colostomy and biopsy of rectal mass. -okay to slowly advance diet as tolerated -stoma teaching per nursing staff -hemoglobin today 1.5 g less than admission, however baseline was previously 9.4. I do expect some bleeding from the rectal mass biopsy. Recheck hemoglobin later today to ensure stability. Patient is at risk for clotting given likely malignancy. If hemoglobin is stable, can start prophylactic Lovenox. -SCDs and ambulation in the meantime. -encourage IS -patient will need staging workup as an outpatient, specifically liver biopsy, pelvis MRI, chest CT, eventual completion colonoscopy and possible PET -consider iron supplementation on discharge. -depending on comfort with stoma cares and ability to advance diet, could discharge home as soon as tomorrow.
[2025-02-09] MEDS: SODIUM CHLORIDE 0.9 % (FLUSH) 10 ML SYRINGE 5 ML IVF (09:03)
[2025-02-09] MEDS: PANTOPRAZOLE SODIUM 40 MG INJ IVP (09:03)
[2025-02-09 10:07] LABS: Sodium Urine Random* 101
[2025-02-09] MEDS: BENZOCAINE/MENTHOL 1 EACH LOZENGE MUCOUS MEM (11:17)
[2025-02-09 12:26] LABS: Hematocrit* 32.4 % (37.0-53.0); Hemoglobin* 9.6 gm/dL (13.5-17.5); Mean Corpuscular HGB Conc 30 gm/dL (32-36); Mean Corpuscular Hemoglobin 21 pg (26-34); Mean Corpuscular Volume 71 fL (80-100); Red Blood Count* 4.57 m/uL (4.30-5.90); White Blood Count* 16.13 K/uL (4.50-11.00)
[2025-02-09 12:28] LABS: Slide Review Reflex No
[2025-02-09 12:50] LABS: Albumin* 3.3 g/dL (3.3-5.0); Chloride* 91 mmol/L (96-114); Potassium* 5.0 mmol/L (3.6-5.1)
[2025-02-09 12:53] LABS: Anion Gap 5 mEq/L (7-15); Blood Urea Nitrogen* 15 mg/dL (7-30); Carbon Dioxide* 27 mmol/L (20-32); Creatinine* 0.8 mg/dL (0.5-1.5); Est. Creatinine Clearance* 57.37; Estimated Glomerular Filt Rate 98 ml/min
[2025-02-09 12:54] LABS: Calcium* 8.3 mg/dL (8.4-10.6); Glucose* 112 mg/dL (60-115)
[2025-02-09 13:07] LABS: Sodium* 123 mmol/L (135-149)
--- NOTE | 2025-02-09 13:10 | P.IMPN_ITS ---
Assessment and Plan Assessment and plan (1) Alcohol use disorder: Problem comment: -daily consumes 2-4beers, increased on the weekend, last intake Monday 02/05 -[facility] protocol -patient and deny history of alcohol withdrawal Status: Acute (2) Anemia: Problem comment: - hemoglobin 10.2, previously 9.4 - possible colorectal source given CT findings. Will need to confirm if having colonoscopy tomorrow. Bowel prep to be determined following 1st surgery this evening Status: Acute (3) Hyponatremia: Problem comment: -sodium 128, recheck in a.m. -NPO for surgical intervention and then advanced to clear liquids as tolerated -continue IVF perioperatively, but will change from lactated Ringer's to normal saline -serum sodium 124 at 6:00 a.m. on 02/09/2025, and serum sodium is 123 at 12:00 p.m. on 02/09/2025 -1800 mL fluid restriction Status: Acute (4) Rectal mass: Problem comment: - CT shows Enhancing irregular rectal mass is seen with moderate distention of the fluid-filled colon. Findings are compatible with malignancy with associated obstruction - General Surgery consult. Dr. Chakraborty planning for surgical intervention - diverting colostomy undertaken. Multiple biopsies of rectal mass obtain. - will need additional outpatient assessments and recommendations including possibly obtaining a biopsy of liver mass in order to make additional determinations Status: Acute (5) Lesion of liver: Problem comment: - CT shows 5.2 x 4.9 centimeter heterogeneous right hepatic lesion is concerning for a metastasis given the rectal lesion - LFTs unremarkable - will need outpatient consideration of obtaining biopsy of liver mass Status: Acute (6) Colostomy in place: Status: Acute (7) S/P colostomy: Problem comment: 02/08/2025 for obstructing rectal mass Status: Acute Plan 1. Reviewed impression, plans, recommendations with patient, , and patient's surgeon, Dr. Nora Chakraborty 2. Answered patient's and 's questions to their satisfaction 3. Continue with Education efforts 4. Continue with outpatient additional plans and recommendations as specified by patient's surgeon 5. Increased activities and oral intake 6. Patient and agreeable to above stated plans and recommendations Total Time Spent Total Time Spent: 40 minutes Subjective Date Seen: 02/09/25 Interval history: 02/08/2025, admission history of present illness: ?64 year old male without documented significant past medical history, not on any prescription medications is admitted to the medical floor from the ED for further management new finding of rectal mass concerning for malignancy associated with obstruction. ?Patient is seen with and daughter at bedside. Reports abdominal pain and change in bowels which he has been present maybe 3-4 months but worse in the past couple of weeks. Tells me his stools have been smaller in volume, sometimes loose. Has had urgency to have a bowel movement but only passing small amounts. Reports seen blood in his feces as well as in the toilet water a couple of weeks ago. He had recently been seen at his annual wellness visit on 01/24/2025 (he has not actually had a wellness exam in years) where he had been complaining about pain and constipation at that time. He was scheduled for a colonoscopy which was scheduled for yesterday but was not completed due to failed bowel prep. He has not been passing stools as normal. Even despite bowel prep. Has had some nausea with vomiting. Last episode of vomiting was yesterday. Has had poor oral intake due to this. Denies any fevers. Has had some chills. Denies headache or dizziness. No current chest pain or shortness of breath. Reports intermittent testicular pain and dysuria. Previous UA during his wellness visit was rather unremarkable. ?Patient is admitted for surgical intervention with General surgery, jaleel Arroyo. There is talk about a colonoscopy as well with Dr. Mina tomorrow. He will be NPO. Chest x-ray and EKG obtained in ED will be reviewed. Labs show a leukocytosis with left shift without recent fever. Lactate and blood cultures have been added. UA has been added. Mild hyponatremia noted otherwise electrolytes rather unremarkable. ?Quit smoking 15 years ago. Drinks alcohol typically on a daily basis 2-3 beers, more on the weekends. Denies history of seizures or withdrawals. Last drink was Monday 02/05. No regular PCP but last saw Dr. Dykes. ?No history of previous surgeries. No previous anesthesia. No known clotting/bleeding disorders.? 02/09/2025, postoperative day 1: Tolerating sips of clear liquids. No flatus or stool yet. Tolerating increased activities such as transfers and ambulating to and from bathroom with assist of 1. Continues to have intermittent pelvic rectal pain. Getting used to the idea of having colostomy, slowly receiving Education related to the same. Exam Narrative: Exam Narrative: Examine the patient his hospital room with his near his side. Appears comfortable and in no acute distress. Hard of hearing which is chronic and not new. Friendly and cooperative. Articulate. Lungs clear to auscultation. Heart tones with regular rhythm. Abdomen is quiet. Moves all 4 extremities without focal motor neurologic deficits. Pathology still pending from biopsies obtained of mass. Const: Vital Signs, click to edit/add: Vital Signs - 24 hr 02/08/25 13:52 02/08/25 13:52 02/08/25 13:58 Temperature 97.7 F 97.7 F Pulse Rate 64 Pulse Rate [Pulse Oximeter] 64 64 Respiratory Rate 16 16 Blood Pressure Blood Pressure [Le ft Arm] Blood Pressure [Ri ght Arm] 154/80 H 154/80 H Pulse Oximetry 100 100 Oxygen Delivery Me thod Room Air Room Air 02/08/25 13:58 02/08/25 15:00 02/08/25 18:02 Temperature 99.8 F H Pulse Rate 55 L Pulse Rate [Pulse Oximeter] 64 Respiratory Rate 16 16 12 Blood Pressure 149/80 H Blood Pressure [Le ft Arm] Blood Pressure [Ri ght Arm] Pulse Oximetry 100 100 Oxygen Delivery Me thod Room Air Room Air 02/08/25 18:07 02/08/25 18:15 02/08/25 18:20 Temperature Pulse Rate 54 L 54 L 50 L Pulse Rate [Pulse Oximeter] Respiratory Rate 18 14 18 Blood Pressure 137/79 152/85 H Blood Pressure [Le ft Arm] Blood Pressure [Ri ght Arm] Pulse Oximetry 100 98 100 Oxygen Delivery Me thod Room Air Room Air Room Air 02/08/25 18:39 02/08/25 18:45 02/08/25 19:04 Temperature 97.7 F Pulse Rate Pulse Rate [Pulse Oximeter] 52 L 51 L 53 L Respiratory Rate 16 16 Blood Pressure Blood Pressure [Le ft Arm] Blood Pressure [Ri ght Arm] 155/77 H 162/84 H 156/80 H Pulse Oximetry 98 98 99 Oxygen Delivery Me thod Room Air Room Air Room Air 02/08/25 19:19 02/08/25 19:33 02/08/25 19:34 Temperature 98.4 F 98.3 F 98.3 F Pulse Rate Pulse Rate [Pulse Oximeter] 53 L 56 L 56 L Respiratory Rate 16 16 16 Blood Pressure Blood Pressure [Le ft Arm] Blood Pressure [Ri ght Arm] 160/74 H 168/91 H 168/91 H Pulse Oximetry 99 98 98 Oxygen Delivery Me thod Room Air Room Air Room Air 02/08/25 20:04 02/08/25 20:34 02/08/25 21:34 Temperature 98.5 F 98.9 F 99.5 F Pulse Rate Pulse Rate [Pulse Oximeter] 59 L 61 63 Respiratory Rate 16 16 16 Blood Pressure Blood Pressure [Le ft Arm] Blood Pressure [Ri ght Arm] 127/95 H 137/67 152/69 H Pulse Oximetry 96 96 96 Oxygen Delivery Me thod Room Air Room Air Room Air 02/08/25 22:34 02/08/25 23:00 02/08/25 23:00 Temperature 98.6 F Pulse Rate 57 L Pulse Rate [Pulse Oximeter] 69 Respiratory Rate 16 16 Blood Pressure Blood Pressure [Le ft Arm] Blood Pressure [Ri ght Arm] 149/73 H Pulse Oximetry 96 96 Oxygen Delivery Me thod Room Air Room Air 02/08/25 23:33 02/09/25 03:00 02/09/25 03:00 Temperature 98.6 F 97.2 F L 97.2 F L Pulse Rate Pulse Rate [Pulse Oximeter] 69 52 L 52 L Respiratory Rate 16 16 16 Blood Pressure Blood Pressure [Le ft Arm] 149/73 H 121/71 121/71 Blood Pressure [Ri ght Arm] Pulse Oximetry 96 97 97 Oxygen Delivery Me thod Room Air Room Air Room Air 02/09/25 09:01 02/09/25 09:08 02/09/25 09:08 Temperature 97.4 F L 97.4 F L Pulse Rate Pulse Rate [Pulse Oximeter] 54 L 60 60 Respiratory Rate 18 18 18 Blood Pressure Blood Pressure [Le ft Arm] 132/63 132/63 Blood Pressure [Ri ght Arm] Pulse Oximetry 96 96 Oxygen Delivery Me thod Room Air Room Air 02/09/25 09:08 02/09/25 10:07 02/09/25 10:23 Temperature 97.5 F L Pulse Rate 55 L Pulse Rate [Pulse Oximeter] 54 L Respiratory Rate 18 18 Blood Pressure Blood Pressure [Le ft Arm] 126/63 Blood Pressure [Ri ght Arm] Pulse Oximetry 96 96 Oxygen Delivery Me thod Room Air Room Air Labs Labs: Laboratory Results - last 24 hr 02/08/25 02/08/25 02/08/25 10:55 13:28 13:52 WBC RBC Hgb Hct MCV MCH MCHC RDW Coeff of [place]ine[place] Plt Count Neut % (Auto) Lymph % (Auto) [place] % (Auto) Eos % (Auto) Baso % (Auto) Neut # (Auto) Lymph # (Auto) [place] # (Auto) Eos # (Auto) Baso # (Auto) Abs Immat Gran (auto) Imm/Tot Granulo (auto) Sodium Potassium Chloride Carbon Dioxide Anion Gap BUN Creatinine Estimated Creat Clear Estimated GFR Glucose Serum Osmolality Cancelled Lactate 1.8 Calcium Phosphorus Total Bilirubin Direct Bilirubin AST ALT Alkaline Phosphatase Total Protein Albumin Procalcitonin 0.15 Ur Random Sodium 101 Lab Acknowledgement Test Added 02/09/25 02/09/25 06:00 12:20 WBC 16.01 H 16.13 H RBC 4.10 L 4.57 Hgb 8.7 L 9.6 L Hct 29.1 L 32.4 L MCV 71 L 71 L MCH 21 L 21 L MCHC 30 L 30 L RDW Coeff of [place]iney 22.9 H Plt Count 350 369 Neut % (Auto) 86.3 H Lymph % (Auto) 5.2 L [place] % (Auto) 8.2 Eos % (Auto) 0.0 Baso % (Auto) 0.1 Neut # (Auto) 13.80 H Lymph # (Auto) 0.80 L [place] # (Auto) 1.30 H Eos # (Auto) 0.00 Baso # (Auto) 0.00 Abs Immat Gran (auto) 0.00 Imm/Tot Granulo (auto) 0.2 Sodium 124 L* 123 L* Potassium 5.2 H 5.0 Chloride 92 L 91 L Carbon Dioxide 26 27 Anion Gap 6 L 5 L BUN 16 15 Creatinine 0.9 0.8 Estimated Creat Clear 57.37 57.37 Estimated GFR 94 98 Glucose 85 112 Serum Osmolality Lactate Calcium 8.2 L 8.3 L Phosphorus 2.8 Total Bilirubin 0.4 Direct Bilirubin 0.2 AST 22 ALT 9 Alkaline Phosphatase 93 Total Protein 5.5 L Albumin 3.0 L 3.3 Procalcitonin Ur Random Sodium Lab Acknowledgement
[2025-02-09] MEDS: SODIUM CHLORIDE 1 GM TABLET PO ×2 (14:16→18:13)
--- NOTE | 2025-02-09 15:56 | PC.SOCIAL ---
Discharge planning: lube worker met with the pt and his daughter to discuss home care fpc for his ostomy bag. Pt thinks that he and his will be able to handle the cares. Pt's daughter is open to home care fpc to help the pt and her mom out at least for the first few weeks. lube worker suggested the family talk it over tonight and this worker will plan to check back in tomorrow morning. Social work to follow-up as needed.
--- NOTE | 2025-02-09 18:55 | PC.NURSE ---
End of shift: Pt. is AOx4. VSS. Pt. new to ostomy; teaching done on care & emptying. Pt. family bedside & present for teaching. Pt. tolerating full liquids. Pt. voiding SBA & emptying ostomy bag w/ help. No edema or swelling. Laparoscopic incision dressing C/D/I. Pt. reported pain, pain med given--see EMAR. Pt. AMB hallway x4 w/ SBA.
[2025-02-10 01:00] VITALS: BP 138/77; PULSE 68; RESP 16; TEMP 36.9; O2SAT 97
[2025-02-10] MEDS: HYDROCODONE-ACETAMIN 5-325 MG 1 TAB PO ×4 (02:55→16:40)
[2025-02-10 03:00] VITALS: BP 142/88; PULSE 68; RESP 18; TEMP 36.5; O2SAT 97
[2025-02-10 05:00] VITALS: BP 142/88; PULSE 68; RESP 18; TEMP 36.5; O2SAT 97
--- NOTE | 2025-02-10 05:50 | PC.NURSE ---
[id number] Pt did not sleep well, up with worry and anxiety about current situation, RN in room several times reassuring pt and encouraging him. colostomy education continued during shift, family asking questions about frequency on wafer changes, how to change it and how to know when its time to change it, RN demonstrated and had family show back how to put tacky around practice stoma and wafer around. answered all other questions, reinforcment needed. Pt demonstrated the ability to empty ostomy bag with some assistance, still working on new body image acceptance. pain controlled with prn oral pain medication.
[2025-02-10 06:41] LABS: Hematocrit* 30.4 % (37.0-53.0); Hemoglobin* 9.2 gm/dL (13.5-17.5); Mean Corpuscular HGB Conc 30 gm/dL (32-36); Mean Corpuscular Hemoglobin 21 pg (26-34); Mean Corpuscular Volume 71 fL (80-100); Red Blood Count* 4.29 m/uL (4.30-5.90); White Blood Count* 12.02 K/uL (4.50-11.00)
[2025-02-10 06:49] LABS: Chloride* 96 mmol/L (96-114)
[2025-02-10 06:50] LABS: Potassium* 4.3 mmol/L (3.6-5.1); Sodium* 127 mmol/L (135-149)
[2025-02-10 06:52] LABS: Blood Urea Nitrogen* 9 mg/dL (7-30); Creatinine* 0.7 mg/dL (0.5-1.5); Est. Creatinine Clearance* 57.37; Estimated Glomerular Filt Rate 102 ml/min
[2025-02-10 06:53] LABS: Anion Gap 4 mEq/L (7-15); Calcium* 8.1 mg/dL (8.4-10.6); Carbon Dioxide* 27 mmol/L (20-32); Glucose* 87 mg/dL (60-115)
[2025-02-10 07:00] VITALS: BP 159/83; PULSE 62; RESP 18; TEMP 36.8; O2SAT 98
[2025-02-10 07:11] LABS: Slide Review Reflex No
--- NOTE | 2025-02-10 08:11 | PM.GSPN ---
Subjective Subjective Date Seen: 02/10/25 Interval history: Ab is doing well. He ate yesterday without nausea. He continues to have stoma output. Denies significant pain. The pressure that he felt for surgery has improved. He does have some urinary retention that had been worsening. This is slowly getting better but is still present. He and his have been working on learning stoma cares. He did have a small amount of blood from his rectum yesterday. Exam Narrative: Exam Narrative: General: No acute distress CV: Regular rate Respiratory: Breathing nonlabored on room air Abdomen: Nondistended. Incisions without erythema. Copious stool in bag. [place] drain removed today. Stoma is pink and proud but edematous. Const: Vital Signs, click to edit/add: Vital Signs - 24 hr 02/09/25 09:01 02/09/25 09:08 02/09/25 09:08 Temperature 97.4 F L 97.4 F L Pulse Rate Pulse Rate [Pulse Oximeter] 54 L 60 60 Respiratory Rate 18 18 18 Blood Pressure [Le ft Arm] 132/63 132/63 Pulse Oximetry 96 96 Oxygen Delivery Me thod Room Air Room Air 02/09/25 09:08 02/09/25 10:07 02/09/25 10:23 Temperature 97.5 F L Pulse Rate 55 L Pulse Rate [Pulse Oximeter] 54 L Respiratory Rate 18 18 Blood Pressure [Le ft Arm] 126/63 Pulse Oximetry 96 96 Oxygen Delivery Me thod Room Air Room Air 02/09/25 13:00 02/09/25 15:00 02/09/25 15:00 Temperature 97.9 F Pulse Rate Pulse Rate [Pulse Oximeter] 62 62 Respiratory Rate 16 16 16 Blood Pressure [Le ft Arm] 148/72 H Pulse Oximetry 99 99 Oxygen Delivery Me thod Room Air Room Air 02/09/25 15:00 02/09/25 15:00 02/09/25 17:00 Temperature 97.9 F Pulse Rate 65 Pulse Rate [Pulse Oximeter] 62 62 Respiratory Rate 16 Blood Pressure [Le ft Arm] 148/72 H 148/72 H Pulse Oximetry 99 Oxygen Delivery Me thod Room Air 02/09/25 19:00 02/09/25 21:00 02/09/25 23:00 Temperature 98.0 F 98.0 F Pulse Rate Pulse Rate [Pulse Oximeter] 66 66 Respiratory Rate 16 16 Blood Pressure [Le ft Arm] 135/71 135/71 Pulse Oximetry 98 98 97 Oxygen Delivery Me thod Room Air Room Air Room Air 02/09/25 23:00 02/10/25 01:00 02/10/25 03:00 Temperature 98.4 F 98.4 F 97.7 F Pulse Rate Pulse Rate [Pulse Oximeter] 68 68 68 Respiratory Rate 16 16 18 Blood Pressure [Le ft Arm] 138/77 138/77 142/88 H Pulse Oximetry 97 97 97 Oxygen Delivery Me thod Room Air Room Air Room Air 02/10/25 05:00 Temperature 97.7 F Pulse Rate Pulse Rate [Pulse Oximeter] 68 Respiratory Rate 18 Blood Pressure [Le ft Arm] 142/88 H Pulse Oximetry 97 Oxygen Delivery Me thod Room Air Labs/Imaging Labs Labs: White blood cell count is trending down. Hemoglobin remains stable in the 9. Hyponatremia improved and hyperkalemia resolved Progress Note:A&P Assessment and plan (1) Rectal cancer: Status: Acute (2) S/P colostomy: Status: Acute (3) Alcohol use disorder: Status: Acute (4) Anemia: Status: Acute (5) Leukocytosis: Status: Acute (6) Hyponatremia: Status: Acute (7) Lesion of liver: Status: Acute Plan The patient is a 64-year-old male with an obstructing rectal mass, presumably adenocarcinoma, 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 He is postop day 2 from diverting colostomy and biopsy of rectal mass. -continue high calorie, high protein, low fiber diet per nutrition recommendations -stoma teaching per nursing staff -hemoglobin stable today. Will start iron and vitamin-C on discharge. -encourage patient to ambulate at home. -outpatient staging workup has been ordered. CT chest and pelvic MRI are pending scheduling. He will be set to see medical oncology after his liver biopsy on February 23. -CEA is pending -Ab is anxious to discharge home I think that that is very reasonable as long as he and his were comfortable with stoma cares. Staci Salazar our stoma care expert will stop by and say hello to them today and we will set him up to see her next week. He will continue education with the online nodule as well as with nursing staff. -social work consulted for home care.
[2025-02-10] MEDS: PANTOPRAZOLE SODIUM 40 MG INJ IVP (08:18)
[2025-02-10] MEDS: SODIUM CHLORIDE 1 GM TABLET PO ×2 (08:18→11:19)
[2025-02-10] MEDS: SODIUM CHLORIDE 0.9 % (FLUSH) 10 ML SYRINGE 5 ML IVF (08:20)
--- NOTE | 2025-02-10 10:21 | W.PC.NUTR.NO ---
Nutrition Progress Note Progress Note Progress Note: Follow-up Note: RDN visited with patient, , and daughter related to diet for colostomy. Patient is is POD #2 from diverting colostomy and biopsy of rectal mass. Visited with patient and asked if they had any questions related to diet for new colostomy. Reviewed diet with them and foods to avoid. Encouraged high calorie and high protein intake due to recent weight loss and BMI on the lower end at 19.3 kg/m2. Encouraged protein supplement use such as Premier Protein, Ensure, etc. Patient's has educational handouts from [employer] yesterday with dietitian. Encouraged patient and family to let staff know if they have any questions. Will continue to monitor until discharge.
[2025-02-10 11:00] VITALS: BP 143/89; PULSE 80; RESP 18; O2SAT 98
--- NOTE | 2025-02-10 13:25 | P.IMPN_ITS ---
Assessment and Plan Assessment and plan (1) Rectal cancer: Problem comment: - await pathology report - future appointments and plans per his surgeon Status: Acute (2) S/P colostomy: Problem comment: 02/08/2025 for obstructing rectal mass - patient and learning about care of ostomy Status: Acute (3) Alcohol use disorder: Problem comment: -daily consumes 2-4beers, increased on the weekend, last intake Monday 02/05 -[facility] protocol -patient and deny history of alcohol withdrawal -recommend abstain from alcohol at this time and lifelong of possible Status: Acute (4) Anemia: Problem comment: - hemoglobin 10.2, previously 9.4 - possible colorectal source given CT findings. Will need to confirm if having colonoscopy tomorrow. Bowel prep to be determined following 1st surgery this evening Status: Acute (5) Leukocytosis: Problem comment: - WBC 17.57, neutrophils 89. Afebrile - BC x2, lactate ordered. UA ordered Status: Acute (6) Hyponatremia: Problem comment: -sodium 128, recheck in a.m. -NPO for surgical intervention and then advanced to clear liquids as tolerated -continue IVF perioperatively, but will change from lactated Ringer's to normal saline -serum sodium 124 at 6:00 a.m. on 02/09/2025, and serum sodium is 123 at 12:00 p.m. on 02/09/2025 -1800 mL fluid restriction Status: Acute (7) Lesion of liver: Problem comment: - CT shows 5.2 x 4.9 centimeter heterogeneous right hepatic lesion is concerning for a metastasis given the rectal lesion - LFTs unremarkable - will need outpatient consideration of obtaining biopsy of liver mass Status: Acute Plan 1. Hospitalist will follow patient while he is in hospital 2. General surgery will continue to direct patient care and decision about when to discharge from hospital Total Time Spent Total Time Spent: 30 minutes Subjective Date Seen: 02/10/25 Interval history: 02/08/2025, admission history of present illness: ?64 year old male without documented significant past medical history, not on any prescription medications is admitted to the medical floor from the ED for further management new finding of rectal mass concerning for malignancy associated with obstruction. ?Patient is seen with and daughter at bedside. Reports abdominal pain and change in bowels which he has been present maybe 3-4 months but worse in the past couple of weeks. Tells me his stools have been smaller in volume, sometimes loose. Has had urgency to have a bowel movement but only passing s mall amounts. Reports seen blood in his feces as well as in the toilet water a couple of weeks ago. He had recently been seen at his annual wellness visit on 01/24/2025 (he has not actually had a wellness exam in years) where he had been complaining about pain and constipation at that time. He was scheduled for a colonoscopy which was scheduled for yesterday but was not completed due to failed bowel prep. He has not been passing stools as normal. Even despite bowel prep. Has had some nausea with vomiting. Last episode of vomiting was yesterday. Has had poor oral intake due to this. Denies any fevers. Has had some chills. Denies headache or dizziness. No current chest pain or shortness of breath. Reports intermittent testicular pain and dysuria. Previous UA during his wellness visit was rather unremarkable. ?Patient is admitted for surgical intervention with General surgery, jaleel Arroyo. There is talk about a colonoscopy as well with Dr. Mina tomorrow. He will be NPO. Chest x-ray and EKG obtained in ED will be reviewed. Labs show a leukocytosis with left shift without recent fever. Lactate and blood cultures have been added. UA has been added. Mild hyponatremia noted otherwise electrolytes rather unremarkable. ?Quit smoking 15 years ago. Drinks alcohol typically on a daily basis 2-3 beers, more on the weekends. Denies history of seizures or withdrawals. Last drink was Monday 02/05. No regular PCP but last saw Dr. Dykes. ?No history of previous surgeries. No previous anesthesia. No known clotting/bleeding disorders.? 02/09/2025, postoperative day 1: Tolerating sips of clear liquids. No flatus or stool yet. Tolerating increased activities such as transfers and ambulating to and from bathroom with assist of 1. Continues to have intermittent pelvic rectal pain. Getting used to the idea of having colostomy, slowly receiving Education related to the same. 02/10/2025, postoperative day 2: Tolerating regular diet, small quantity. Denies nausea or vomiting. Pain better managed. Tolerating increased activities. Received education regarding ostomy care. Answering his and 's questions to their satisfaction regarding underlying condition, goals of care, home care, future appointments, and so forth. Patient rather insistent about going home as soon as he possibly can. We encouraged him to take his time making that decision as he is receiving direction and education about his condition and what he needs to do to care for himself. Exam Narrative: Exam Narrative: Examined patient in his hospital room. Tolerating increased activities. No focal motor neurologic deficits. Ostomy site is pink and slightly edematous, consistent with postop day 2. Active bowel sounds, soft abdomen. Heart tones with regular rhythm. Lungs are clear to auscultation. Thin with cachectic appearance. Const: Vital Signs, click to edit/add: Vital Signs - 24 hr 02/09/25 15:00 02/09/25 15:00 02/09/25 15:00 Temperature 97.9 F Pulse Rate Pulse Rate [Pulse Oximeter] 62 62 Respiratory Rate 16 16 16 Blood Pressure [Le ft Arm] 148/72 H Blood Pressure [Ri ght Arm] Pulse Oximetry 99 99 Oxygen Delivery Me thod Room Air Room Air 02/09/25 15:00 02/09/25 17:00 02/09/25 19:00 Temperature 98.0 F Pulse Rate 65 Pulse Rate [Pulse Oximeter] 62 66 Respiratory Rate 16 Blood Pressure [Le ft Arm] 148/72 H 135/71 Blood Pressure [Ri ght Arm] Pulse Oximetry 98 Oxygen Delivery Il thod Room Air 02/09/25 21:00 02/09/25 23:00 02/09/25 23:00 Temperature 98.0 F 98.4 F Pulse Rate Pulse Rate [Pulse Oximeter] 66 68 Respiratory Rate 16 16 Blood Pressure [Le ft Arm] 135/71 138/77 Blood Pressure [Ri ght Arm] Pulse Oximetry 98 97 97 Oxygen Delivery Me thod Room Air Room Air Room Air 02/10/25 01:00 02/10/25 03:00 02/10/25 05:00 Temperature 98.4 F 97.7 F 97.7 F Pulse Rate Pulse Rate [Pulse Oximeter] 68 68 68 Respiratory Rate 16 18 18 Blood Pressure [Le ft Arm] 138/77 142/88 H 142/88 H Blood Pressure [Ri ght Arm] Pulse Oximetry 97 97 97 Oxygen Delivery Me thod Room Air Room Air Room Air 02/10/25 07:00 02/10/25 07:00 Temperature 98.2 F Pulse Rate Pulse Rate [Pulse Oximeter] 62 Respiratory Rate 18 18 Blood Pressure [Le ft Arm] Blood Pressure [Ri ght Arm] 159/83 H Pulse Oximetry 98 98 Oxygen Delivery Me thod Room Air Room Air Labs Labs: Laboratory Results - last 24 hr 02/10/25 06:22 WBC 12.02 H RBC 4.29 L Hgb 9.2 L Hct 30.4 L MCV 71 L MCH 21 L MCHC 30 L Plt Count 341 Sodium 127 L Potassium 4.3 Chloride 96 Carbon Dioxide 27 Anion Gap 4 L BUN 9 Creatinine 0.7 Estimated Creat Clear 57.37 Estimated GFR 102 Glucose 87 Calcium 8.1 L
[2025-02-10 15:00] VITALS: RESP 18
--- NOTE | 2025-02-10 15:36 | PC.NURSE ---
pt emptying ostomy bag independently. [employer] observed good output
--- NOTE | 2025-02-10 16:36 | PC.SOCIAL ---
Discharge planning: Pt and his family are open to [facility] services for the pt's new ostomy. adz worker contacted the following home care agencies with the listed results... 1.) [facility] #[phone]= at capacity. 2.) [facility] #[phone]= stated they do not do ostomy or catheter cares. 3.) [facility] #[phone]= at capacity. 4.) [facility] [employer] [facility], [facility]. #[phone]= faxed referral and are waiting for a response. adz worker updated pt's on the home care search progress. Pt's and his adult daughter have been taught/educated on how to care for pt's ostomy by hospital nursing staff. Pt will also be coming to [facility] on Thursday the for a follow-up/check-in. Social work to follow-up as needed.
--- NOTE | 2025-02-10 17:00 | PC.NURSE ---
Nursing Care Hours: [id number] Pt this shift calm and cooperative, alert and oriented. Ostomy producing soft liquid brown stool. Pt having small amount bright red bleeding from rectum when using bathroom to void. Pt also reports some brown stool. Discussed mass in rectum can produce bleeding and residual stool could continue to pass through. Discussed SS to report related to bleeding. Pt showered today and pt and daughter performed ostomy change with RN verbal instruction and guidance. Family tolerated procedure well and show understanding of stoma care and appearance changes to report. Pt VSS. Ambulating keller. Pain treated with PO pain meds. IV removed for discharge. Discharge instructions given. All questions and concerns addressed.
[2025-02-11 04:54] LABS: Carcinoembryonic Antigen 9.1 ng/mL (<=3.8)
--- NOTE | 2025-02-13 16:03 | PC.SOCIAL ---
Discharge planning: SHANTELL called [facility] who states that they are at capacity. SHANTELL called [facility], [facility], [facility], [facility], and [facility], to see if they potentially service patient's area and they do not. SW left a voicemail with [facility] inquiring if they service his area, but have not received a call back. SW called patient's phone and answered stating patient is using the restroom. SHANTELL updated that right now no home care has been able to take patient, but SW will send referrals to the two places that said they were at capacity last week and keep them updated.
--- NOTE | 2025-02-14 14:12 | PC.SOCIAL ---
Addendum entered by NAYLA Velasco 02/15/25 09:57: Discharge planning/late entry: On 02/14/25 [facility] called back and said that they cannot accept the pt because they do not service [facility]. Social work to follow-up as needed. Original Note: Discharge planning: sort worker resent pt's nursing home home care referral to [facility] today via fax #[phone] and they called back stating they were still at capacity. sort worker called [facility] and they stated that they service [facility], but due to staffing they cannot accept at pt that lives in [facility] right now. sort worker then faxed the referral to [facility], [facility] #[phone] and are waiting on a response from them on if they can accept or not. sort worker also re-faxed the pt's referral to [facility] #[phone]. Social work to follow-up as needed.
--- NOTE | 2025-02-15 09:58 | PC.SOCIAL ---
Addendum entered by NAYLA Velasco 02/16/25 13:46: Discharge planning: family day care worker confirmed with the pt's that the pt does not need custodial home care and they feel they are managing well at home. Social work to follow-up as needed. Original Note: Discharge planning: family day care worker received a message from [facility] this morning stating that they called the pt to start working on navigating the referral and the pt told them that he felt he didn't need home care services because his is home with him and his daughter also stops in and checks on him and assists him. [facility] also said that the pt said they could give his spot away to someone that was more in need of home care services than him. At this point, social work will not continue to look for home care custodial services for the pt. Social work to follow-up if needed.
== END 2025-02-10 16:45 | disposition home or self-care (01) | DRG 221 ==
LOC: ED 13:21 → MEDSURG 13:45
PROVIDERS: Internal Medicine; Surgery; Admitting Provider Physician Assistant; Emergency Provider Student in an Organized Health Care Education/Training Program; PCP Family Medicine; Visit Provider Family Medicine
PROC: 0DTN0ZZ Resection of Sigmoid Colon, Open Approach (ICD-10-PCS; CPT 44204; principal; 2025-02-08 15:45)
PROC: 0DBP8ZX Excision of Rectum, Via Natural or Artificial Opening Endoscopic, Diagnostic (ICD-10-PCS; 2025-02-08 15:45)
DX: C20 Malignant neoplasm of rectum (principal); K56.699 Other intestinal obstruction unspecified as to partial versus complete obstruction; C78.7 Secondary malignant neoplasm of liver and intrahepatic bile duct; D64.9 Anemia, unspecified; E87.1 Hypo-osmolality and hyponatremia; G89.18 Other acute postprocedural pain; F10.90 Alcohol use, unspecified, uncomplicated; D72.829 Elevated white blood cell count, unspecified; R63.4 Abnormal weight loss; Z68.1 Body mass index [BMI] 19.9 or less, adult; Z87.891 Personal history of nicotine dependence
CPT/HCPCS: 00840; 36415; 51798; 64488; 71045; 74177; 76942; 80048; 80053; 80069; 80076; 81001; 82378; 83605; 83735; 83930; 84145; 84300; 84484; 85018; 85025; 85027; 87040; 88305; 88341; 88342; 93005; 97161; 97165; 97530; 97535; 99285; A4314; A9270; J0330; J0665; J0666; J1100; J1171; J2405; J2470; J2543; J2704; J2710; J3010; J3475; J3490; J7030; J7120; Q9967

== ENCOUNTER 2025-02-21 08:26 | Outpatient (CLI) | payer BC, SELFPAY ==
--- NOTE | 2025-02-21 09:00 | CRLHL7_ITS ---
For Patients: As a result of the Century Cures Act, medical imaging exams and procedure reports are released immediately into your electronic medical record. You may view this report before your referring provider. If you have questions, please contact your health care provider. Indication: RECTAL CANCER STAGING Technique: CT Chest 75CC ISOVUE 370 intravenous contrast Please note that all CT scans at this facility use dose modulation, iterative reconstruction, and/or weight-based dosing when appropriate to reduce radiation dose to as low as reasonably achievable. Comparison: CT abdomen and pelvis 02/08/2025 Findings: The visualized thyroid is within normal limits. No mediastinal, hilar or axillary adenopathy. Large heterogeneous hypodense right hepatic lobe mass again noted measures 6.2 x 6.1 cm. No pleural or pericardial effusion. Ill-defined density within the superior segment of the left lower lobe is present, , measuring approximately 15 millimeters. Mild biapical pleural-parenchymal scarring. No fracture. No suspicious osseous lesion. Impression: Ill-defined 15 millimeter nodular area within the superior segment of the left lower lobe, possibly inflammatory or related to scarring. Follow-up chest CT in 3 months suggested. No intrathoracic adenopathy or suspicious osseous lesion. Large hepatic mass. Please note that all CT scans at this facility use dose modulation, iterative reconstruction, and/or weight-based dosing when appropriate to reduce radiation dose to as low as reasonably achievable. Dictated by Gregory Joe MD @ 02/21/2025 10:18:16 AM (Electronically Signed)
--- NOTE | 2025-02-21 09:15 | CRLHL7_ITS ---
For Patients: As a result of the 21st Century Cures Act, medical imaging exams and procedure reports are released immediately into your electronic medical record. You may view this report before your referring provider. If you have questions, please contact your health care provider. INDICATION: Rectal cancer staging COMPARISON: CT abdomen and pelvis 02/08/2025 TECHNIQUE: Mulitplanar, mutliparametric MR imaging of the pelvis without and with intravenous contrast, rectal protocol. Contrast: 11 mL Dotarem, IV FINDINGS: 1. TUMOR LOCATION AND CHARACTERISTICS: -General description: Heterogeneously enhancing rectosigmoid mass -Clock-face of tumor involvement: Circumferential -Mucinous: No -Craniocaudal length: 6.9 cm (06/08) -Relationship to anterior peritoneal reflection: Above, though the inferior most portion is only slightly above the anterior peritoneal reflection (06/08). -Anal verge to distal tumor margin: 10.1 cm (06/07) -Distance from distal extent of tumor to top of sphincter complex: 6.1 centimeters () 2. EXTRAMURAL DEPTH OF INVASION AND MR T-CATEGORY: Extremely limited evaluation of extramural depth of invasion due to lack of sequences through the tumor axis and significant motion artifact. Within limitations, there is involvement of the muscularis propria, with some extension into the perirectal fat (2/) at 6 o`clock. There is also an exophytic portion in the sigmoid with a 0.9 centimeter exophytic portion on the right (14/13), with abnormal morphology with hypointense component. This is with the bowel lumen, raising possibility of contained perforation, though there is no internal fluid component to confirm this possibility. This portion compresses and adjacent small bowel loop, but does not definitely invade into the bowel loop 3. RELATIONSHIP OF TUMOR TO MESORECTAL FASCIA (MRF): Severe limitations limit evaluation for distance to mesorectal fascia including motion artifact, and suboptimal axial planes. Within limitations, no definite involvement of the mesorectal fascia or tumor spiculations close to the mesorectal fascia. Measurements provided below, though accuracy is limited. -Shortest distance of the definitive tumor border to the MRF is: 0.6 centimeters at 3 o`clock (08/31) -Are there any tumor spiculations closer to the MRF? No definite 4. EXTRAMURAL VENOUS INVASION (EMVI): None, though motion artifact limits evaluation. 5. MESORECTAL LYMPH NODES AND TUMOUR DEPOSITS: -Suspicious mesorectal lymph nodes/tumor deposits: No suspicious lymph nodes -largest lymph node: Mesorectal lymph node measuring 0.4 centimeters without internal heterogeneity (14/15) 6. EXTRAMESORECTAL LYMPH NODES: None within field of view 7. OTHER FINDINGS: Trace ascites. Borderline prostatomegaly. Trabeculated bladder can be seen with chronic bladder outlet obstruction. IMPRESSION: Evaluation is severely limited by motion artifact and suboptimal axial planes, which are not through the tumor axis. MRI rectal cancer T category: T3 (at least T3c) -Maximum EMD of invasion: In the sigmoid portion measuring 0.9 centimeters, with abutment of adjacent small bowel loop, without definite invasion. -Minimum tumor to MRF distance: Suboptimal evaluation, but approximately 0.6 centimeters -Low rectal tumor component: None -EMVI: No definite. Mesorectal nodes/tumor deposits: No definite suspicious lymph nodes Extramesorectal nodes: None within the [id number] Dictated by Rossy Benjamin MD @ 02/23/2025 7:47:47 AM (Electronically Signed)
== END 2025-02-21 08:27 | disposition home or self-care (01) ==
LOC: CT 08:27
PROVIDERS: PCP Family Medicine; Visit Provider Surgery
DX: C20 Malignant neoplasm of rectum (principal); R16.0 Hepatomegaly, not elsewhere classified; Z93.3 Colostomy status
CPT/HCPCS: 71260; 72197; A9575; Q9967

== ENCOUNTER 2025-03-06 07:37 | Day surgery (SDC) | payer BC, SELFPAY ==
[2025-03-06 07:56] VITALS: BMI 17.3
[2025-03-06] MEDS: LACTATED RINGERS 1000 ML 1,000 ML 100 ML IV (08:03)
[2025-03-06] MEDS: SODIUM CHLORIDE 0.9 % (FLUSH) 10 ML SYRINGE IVF (08:03)
[2025-03-06 08:26] VITALS: BP 115/73; PULSE 78; RESP 16; TEMP 36.8; O2SAT 98
--- NOTE | 2025-03-06 08:55 | P.GSOP_ITS ---
Operative Note Date of procedure: 03/06/25 Pre-op diagnosis: Metastatic rectal cancer Post-op diagnosis: Same Type of Procedure: Right internal jugular port placement with ultrasound and fluoroscopic guidance Indications: The patient is a 64-year-old male who presented with an obstructing rectal mass. Workup revealed rectal cancer metastatic to the liver. Chemotherapy is planned. Port placement was requested by his oncologist. Procedure Description: After discussing the risks and benefits of the procedure, the patient signed informed consent.? The operative site was marked and the patient was brought to the operating room and placed on the operating table in supine position.? Care was taken to pad the patient's pressure points.?? The patient was then given sedation by anesthesia.?? The operative site was then prepped and draped in the usual sterile fashion.? A time-out was then performed. The patient's right internal jugular vein was visualized using ultrasound. Local anesthetic was injected into the skin overlying the vein. This was accessed percutaneously using ultrasound guidance. Using Seldinger technique, a guidewire was threaded through the needle. A skin masood was made around the wire. Next, local anesthetic was injected into the skin below the clavicle and along the proposed tract to the neck incision. A skin incision was then made with a 15 blade and a pocket created in the subcutaneous tissue with cautery. A tunneler was then used to thread the catheter from the chest wall pocket to the neck incision. Once this was done fluoroscopy was brought into the field. Over the wire the tract was dilated using fluoroscopy. The wire and the dilator were the n removed leaving the sheath in the vein. Through this, the catheter was threaded. Using fluoroscopy, the catheter was positioned into the distal SVC. The catheter was noted to flush and aspirate easily. The catheter was then connected to the port. The port was placed in the pocket and secured in place with 2 0 Prolene sutures. It was noted to flush and aspirate easily. This was then locked with heparinized saline. The skin was closed with absorbable suture. Glue was then applied. Instrument sponge and needle counts were correct at the end of the case. The patient was woken and taken to the PACU in stable condition. The patient tolerated the procedure well. Findings: Right IJ PowerPort placed in the low SVC Surgeon: Nora Chakraborty MD Estimated blood loss (mL): 3 Condition: stable Disposition: same day
--- NOTE | 2025-03-06 08:55 | W.PM.H&PU ---
History & Physical Update History & Physical Update H&P Reviewed and patient assessed: No changes noted
--- NOTE | 2025-03-06 09:00 | CRLHL7_ITS ---
For Patients: As a result of the Century Cures Act, medical imaging exams and procedure reports are released immediately into your electronic medical record. You may view this report before your referring provider. If you have questions, please contact your health care provider. Indication: tyrell cath placement Technique: One fluoroscopic image of the chest. Fluoroscopic time 41.4 seconds. IMPRESSION: Fluoroscopic guidance for Port-A-Cath placement. Dictated by Gregory Joe MD @ 03/06/2025 11:17:56 AM (Electronically Signed)
--- NOTE | 2025-03-06 09:14 | CRLHL7_ITS ---
For Patients: As a result of the Century Cures Act, medical imaging exams and procedure reports are released immediately into your electronic medical record. You may view this report before your referring provider. If you have questions, please contact your health care provider. INDICATION: Status post port placement COMPARISON: February 08, 2025 TECHNIQUE: A single view study was obtained as a portable CXR,March 06, 2025 FINDINGS: As discussed below IMPRESSION: 1. Right IJ port ending in the SVC. 2. Normal cardiac contour. 3. The lungs are clear. 4. No pleural effusion or pneumothorax. Dictated by Baldemar Heck MD @ 03/06/2025 10:18:05 AM (Electronically Signed)
[2025-03-06] MEDS: LIDOCAINE 1% MDV 20 ML INJECTION (09:39)
[2025-03-06] MEDS: HEPARIN 500 UNIT/5 ML SYRINGE IVF (09:39)
[2025-03-06] MEDS: 0.9% SODIUM CHL 50 ML VIAL INJECTION (09:39)
[2025-03-06] MEDS: BUPIVACAINE 0.5% 30 ML INJECTION (09:39)
[2025-03-06 10:00] VITALS: BP 102/67; PULSE 63; RESP 16; TEMP 36.4; O2SAT 100
--- NOTE | 2025-03-06 10:02 | P.ANES_ITS ---
Anesthesia Charges Start Date/Time Anesthesia Start Date: 03/06/25 Anesthesia Start Time: 09:09 Stop Date/Time Anesthesia Stop Date: 03/06/25 Anesthesia Stop Time: 10:01 Coding CPT Codes CPT Codes: ANESTH VASCULAR ACCESS - 45996 ([id number]) P2 - PATIENT W/MILD SYST DISEASE, QZ - PATIENT APPOINTMENT COORDINATOR SVC W/O DRAW PRESS OPERATOR BY
--- NOTE | 2025-03-06 10:02 | W.ANESCHARGE ---
Anesthesia Charges Start Date/Time Anesthesia Start Date: 03/06/25 Anesthesia Start Time: 09:09 Stop Date/Time Anesthesia Stop Date: 03/06/25 Anesthesia Stop Time: 10:01 Coding CPT Codes CPT Codes: ANESTH VASCULAR ACCESS - 44853 ([id number]) P2 - PATIENT W/MILD SYST DISEASE, QZ - SWEEPER OPERATOR HIGHWAYS SVC W/O ECONOMIC ADVISER BY
[2025-03-06 10:15] VITALS: BP 103/59; PULSE 65; RESP 16; O2SAT 99
[2025-03-06 10:30] VITALS: BP 107/66; PULSE 73; RESP 16; O2SAT 98
[2025-03-06 10:45] VITALS: BP 113/67; PULSE 53; RESP 16; O2SAT 99
== END 2025-03-06 11:08 | disposition home or self-care (01) ==
PROVIDERS: PCP Family Medicine; Visit Provider Surgery
PROC: (CPT 36561; principal; 2025-03-06 09:00)
DX: Z45.2 Encounter for adjustment and management of vascular access device (principal); C20 Malignant neoplasm of rectum; C78.7 Secondary malignant neoplasm of liver and intrahepatic bile duct
CPT/HCPCS: 36561; 00532; 71045; 76998; J2003; C1788; J0665; J0690; J1642; J2704; J3490; J7120

== ENCOUNTER 2025-03-07 09:28 | Outpatient (CLI) | payer BC, SELFPAY ==
--- NOTE | 2025-03-07 09:45 | CRLHL7_ITS ---
For Patients: As a result of the 21st Century Cures Act, medical imaging exams and procedure reports are released immediately into your electronic medical record. You may view this report before your referring provider. If you have questions, please contact your health care provider. 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 Liver lesion and lung nodule. patient is referred for further characterization. TECHNIQUE: Radiopharmaceutical: 13.6 mCi of 18F-FDG Intravenous injection site: Rac Uptake time: 60 minutes Blood glucose level at the time of injection: 81 mg/dL Field of view: Skull base to mid-thighs CT protocol: The low-dose, free-breathing, noncontrast CT performed as part of this study is designed for the purposes of attenuation correction and lesion localization, and it is neither sufficient, nor it should be substituted for diagnostic purposes. COMPARISON: CT chest 02/21/2025. MRI pelvis 02/21/2025. CT abdomen and pelvis 02/08/2025 FINDINGS: Physiologic background liver standardized uptake value (SUV mean and SUV max) reported for comparison between PET studies: 1.6 and 2.1. Visualized head and neck: No abnormal uptake in the visualized brain or posterior fossa. Carotid vascular calcification. Head and neck lymph nodes: No enlarged or hypermetabolic cervical chain lymph nodes. Lungs: Respiratory motion. Mild apical scarring. No abnormal right lung uptake. Ground-glass nodular opacity superior segment left lower lobe, 1 point 9 cm, SUV max 0.4 (series 202, image 89). Comparison CT chest 1.9 cm (series 3, image 54). Nonspecific, potentially focal scarring or low-grade mucinous lesion. Not likely metastatic. Attention on imaging follow-up. Additional micro nodules in each lung without uptake too small to characterize. Pleura and pericardium: No significant pleural or pericardial effusion. Thoracic lymph nodes: No enlarged or hypermetabolic mediastinal or axillary lymph nodes. Variable mild uptake within nonenlarged mediastinal and small axillary lymph nodes. For example: Precarinal lymph node, 0.8 cm short axis SUV max 2.0. Right anterior perihilar brittany uptake, 0.5 cm short axis, SUV max 1.9. Right axillary lymph node, 0.4 cm short axis, SUV max 1.3. Other chest findings: Diffuse coronary vascular calcifications/stent. Postprocedural changes with a new right chest port and central catheter tip positioned in the lower SVC. Hepatobiliary: Centrally necrotic superior right lobe mass with peripheral uptake, 5.9 x 5.6 cm, SUV max 10.4 (fused image 152). Highly suspicious for hepatic metastatic disease. Pancreas: No abnormal uptake. Small hypodense lesion proximal pancreatic body without uptake too small to characterize (fused image 169). No adjacent inflammatory change. Spleen: No abnormal uptake. No splenomegaly. Adrenal glands: Similar bilateral adrenal configuration. No abnormal uptake. Kidneys and bladder: No obstruction or abnormal renal uptake. Nondilated ureters. Partially distended bladder. Bowel and peritoneum: No abnormal gastric, small bowel or proximal colon uptake. New left lateral quadrant colostomy. No obstruction. Masslike circumference thickening of the rectosigmoid colon is intensely avid, difficult to measure, SUV max 11.2 (fused image 239). Biopsy-proven primary colon malignancy. Nodularity along the right lateral margin lower rectosigmoid colon suspicious for regional lymphadenopathy or extramural extension of tumor, 0.8 cm short axis, SUV max 3.6 (fused image 235-6). Comparison CT abdomen and pelvis series 2, image 110. Overall craniocaudal extent of uptake 6.7 cm. Sigmoid colon diverticulosis proximal to the rectosigmoid mass. Pelvic organs: Bilateral posterior pelvic and presacral/perirectal soft tissue stranding. Mild prostate enlargement. Abdominopelvic lymph nodes: No enlarged or hypermetabolic upper abdominal, mesenteric or retroperitoneal lymph nodes. No suspicious tracer avid pelvic sidewall or inguinal lymphadenopathy. Small mesorectal lymph nodes considered nonspecific, possibly reactive. For example: Right pelvic mesorectal lymph node, 0.4 cm short axis, SUV max 1.3 (fused image 240). Musculoskeletal, soft tissues, skin: No aggressive, lytic or expansile osseous lesions with uptake. Localized soft tissue uptake between the right anterior 7th and 8th ribs with no measurable noncontrast CT abnormality, SUV max 2.4 (fused image 171). Possibly posttraumatic soft tissue or misregistered activity from the adjacent rib. No obvious deformity. Correlate on exam. Degenerative type uptake within the spine. -localized soft tissue uptake deep to the umbilicus may be postprocedural related to port placement during recent surgery, SUV max 2.3 (fused image 205). Other: Diffuse aortoiliac vascular calcifications. IMPRESSION: 1. Intensely avid masslike thickening of the rectosigmoid colon is consistent with primary colon neoplasm. Adjacent nodularity along the right lateral margin of the rectosigmoid mass may represent regional metastatic lymphadenopathy or extramural extension of tumor. Otherwise no enlarged or hypermetabolic lymphadenopathy in the upper abdomen, mesentery, retroperitoneum or pelvic sidewalls. 2. Centrally necrotic mass lesion with peripheral uptake in the superior central right hepatic lobe is considered highly suspicious for metastatic disease. 3. No abnormal uptake in the lungs. Ground-glass nodular opacity superior segment left lower lobe demonstrates very low-level uptake. Not likely metastatic. Possibly inflammatory related to scarring. Low-grade mucinous pulmonary lesion not excluded. Attention on imaging follow-up. 4. No aggressive tracer avid osseous lesions. Focal soft tissue uptake between the right anterior 7th and 8th ribs with no measurable abnormality on noncontrast CT is nonspecific. Possibly posttraumatic or related to misregistered uptake from and adjacent rib. Nonspecific. Attention on follow-up. 5. Other nonacute findings as detailed in the body of the report. Dictated by Ian Riggs MD @ 03/07/2025 1:03:48 PM (Electronically Signed)
== END 2025-03-07 09:29 | disposition home or self-care (01) ==
LOC: RAD 09:28
PROVIDERS: PCP Family Medicine; Visit Provider Surgery
DX: C20 Malignant neoplasm of rectum (principal); R91.1 Solitary pulmonary nodule; K76.9 Liver disease, unspecified
CPT/HCPCS: 78815; A9552